=== PATIENT | male | born 1950 | race Caucasian/White ===

== ENCOUNTER → 2018-02-14 08:26 | Outpatient (CLI) | payer OTHER, SELFPAY ==
[2018-02-14 09:46] LABS: Hemoglobin A1c 9.5 % (4.2-6.3)
[2018-02-14 09:54] LABS: Cholesterol 135 mg/dL (200); High Density Lipoprotein 43 mg/dL; Triglycerides 103 mg/dL; Very Low Density Lipoprotein 21 mg/dL (5-40)
== END ==
PROVIDERS: Family Provider Family Medicine; PCP Family Medicine; Visit Provider Family Medicine
DX: E11.9 Type 2 diabetes mellitus without complications (principal)
CPT/HCPCS: 36415; 80061; 83036

== ENCOUNTER → 2018-05-09 10:51 | Outpatient (CLI) | payer OTHER, SELFPAY ==
[2018-05-09 12:10] LABS: Hemoglobin A1c 9.1 % (4.2-6.3)
== END ==
PROVIDERS: Family Provider Family Medicine; PCP Family Medicine; Visit Provider Family Medicine
DX: E11.9 Type 2 diabetes mellitus without complications (principal)
CPT/HCPCS: 36415; 83036

== ENCOUNTER → 2018-08-10 09:57 | Outpatient (CLI) | payer OTHER, SELFPAY | PROVIDERS: Family Provider Family Medicine; PCP Family Medicine; Referring Provider Family Medicine; Visit Provider Family Medicine | DX: E11.9 Type 2 diabetes mellitus without complications (principal) | CPT/HCPCS: 36415; 83036 ==

== ENCOUNTER → 2019-02-20 | Outpatient (CLI) | payer OTHER, SELFPAY ==
[2019-02-20 09:07] VITALS: BMI 34.3
[2019-02-20 12:22] LABS: AST(SGOT) 22 U/L (15-37); Alanine Aminotransfer ALT/SGPT 41 U/L (16-61); Albumin, Serum 3.7 g/dL (3.2-5.0); Alkaline Phosphatase 66 U/L (45-117); Anion Gap 6 (5-15); BUN 17 mg/dL (7-18); Calcium,Total 8.9 mg/dL (8.5-10.1); Chloride 104 mmol/L (98-107); Cholesterol 130 mg/dL (200); Creatinine, Serum 0.68 mg/dL (0.70-1.30); EST Glomerular Filtration Rate 124 mL/min (>60); Est Glom Filt Rate - Afr Amer 150 mL/min (>60); Globulin 3.6 g/dL (2.2-4.2); Glucose 191 mg/dL (74-106); High Density Lipoprotein 41 mg/dL; Potassium 4.1 mmol/L (3.5-5.1); Protein, Total 7.3 g/dL (6.4-8.2); Sodium Level 141 mmol/L (136-145); Triglycerides 183 mg/dL; Very Low Density Lipoprotein 37 mg/dL (5-40)
== END | disposition home or self-care (01) ==
LOC: BIMLAB 09:59
PROVIDERS: Family Provider Family Medicine; PCP Family Medicine; Visit Provider Family Medicine
DX: E78.5 Hyperlipidemia, unspecified (principal)
CPT/HCPCS: 36415; 80053; 80061

== ENCOUNTER → 2020-03-25 09:17 | Outpatient (CLI) | payer OTHER, SELFPAY ==
[2020-03-25 08:44] VITALS: BMI 34.3
[2020-03-25 12:35] LABS: ALB/GLOB Ratio 1.1 RATIO (0.9-2.4); AST(SGOT) 23 U/L (15-37); Alanine Aminotransfer ALT/SGPT 49 U/L (16-61); Albumin, Serum 3.7 g/dL (3.2-5.0); Alkaline Phosphatase 60 U/L (45-117); Anion Gap 8 (5-15); BUN 16 mg/dL (7-18); Calcium,Total 9.1 mg/dL (8.5-10.1); Chloride 106 mmol/L (98-107); EST Glomerular Filtration Rate 120 mL/min (>60); Est Glom Filt Rate - Afr Amer 146 mL/min (>60); Globulin 3.5 g/dL (2.2-4.2); Glucose 243 mg/dL (74-106); Potassium 4.1 mmol/L (3.5-5.1); Protein, Total 7.2 g/dL (6.4-8.2); Sodium Level 142 mmol/L (136-145)
[2020-03-25 12:55] LABS: Microalbumin,Random Urine 39.1 mg/L (NO RANGE EST.); Microalbumin:Creatinine Ratio 30.3 mg/g CRE (<30 mg/g CRE)
== END ==
PROVIDERS: PCP Family Medicine; Referring Provider Family Medicine; Visit Provider Family Medicine
DX: E11.9 Type 2 diabetes mellitus without complications (principal)
CPT/HCPCS: 36415; 80053; 82043; 82570

== ENCOUNTER → 2021-02-11 13:38 | Outpatient (CLI) | payer OTHER, SELFPAY ==
[2021-02-11 13:03] VITALS: BMI 35.0
[2021-02-11 14:51] LABS: ALB/GLOB Ratio 1.1 RATIO (0.9-2.4); AST(SGOT) 25 U/L (15-37); Alanine Aminotransfer ALT/SGPT 49 U/L (16-61); Albumin, Serum 3.5 g/dL (3.2-5.0); Alkaline Phosphatase 62 U/L (45-117); Anion Gap 6 (5-15); BUN 17 mg/dL (7-18); BUN/Creat Ratio 19.2 RATIO (10-20); Calcium,Total 8.8 mg/dL (8.5-10.1); Chloride 103 mmol/L (98-107); Cholesterol 132 mg/dL (200); Creatinine, Serum 0.89 mg/dL (0.70-1.30); EST Glomerular Filtration Rate 91 mL/min (>60); Est Glom Filt Rate - Afr Amer 110 mL/min (>60); Globulin 3.1 g/dL (2.2-4.2); Glucose 339 mg/dL (74-106); High Density Lipoprotein 37 mg/dL; Potassium 4.5 mmol/L (3.5-5.1); Protein, Total 6.6 g/dL (6.4-8.2); Sodium Level 138 mmol/L (136-145); Triglycerides 219 mg/dL; Very Low Density Lipoprotein 44 mg/dL (5-40)
[2021-02-11 15:44] LABS: Microalbumin,Random Urine 11.1 mg/L (NO RANGE EST.)
== END ==
PROVIDERS: PCP Family Medicine; Referring Provider Family Medicine; Visit Provider Family Medicine
DX: E78.5 Hyperlipidemia, unspecified (principal); E11.9 Type 2 diabetes mellitus without complications
CPT/HCPCS: 36415; 80053; 80061; 82043; 82570

== ENCOUNTER → 2021-10-07 09:31 | Outpatient (CLI) | payer OTHER, SELFPAY ==
[2021-10-07 12:25] LABS: Anion Gap 8 (5-15); BUN 18 mg/dL (7-18); BUN/Creat Ratio 28.3 RATIO (10-20); Calcium,Total 8.7 mg/dL (8.5-10.1); Chloride 104 mmol/L (98-107); Creatinine, Serum 0.64 mg/dL (0.70-1.30); EST Glomerular Filtration Rate 133 mL/min (>60); Est Glom Filt Rate - Afr Amer 161 mL/min (>60); Glucose 301 mg/dL (74-106); Potassium 3.9 mmol/L (3.5-5.1); Sodium Level 137 mmol/L (136-145)
[2021-10-07 12:39] LABS: Hemoglobin A1c 11.5 % (3.8-5.6)
== END ==
PROVIDERS: PCP Family Medicine; Visit Provider Family Medicine
DX: E11.9 Type 2 diabetes mellitus without complications (principal); Z79.4 Long term (current) use of insulin
CPT/HCPCS: 36415; 80048; 83036

== ENCOUNTER 2022-01-23 08:20 | Emergency (ER) | payer OTHER, SELFPAY ==
[2022-01-23 08:21] VITALS: BP 176/89; PULSE 86; RESP 16; TEMP 36; O2SAT 95; BMI 31.7
--- NOTE | 2022-01-23 08:36 | EDS_ITS ---
HPI HPI - GI History of Present Illness Chief Complaint: Abd Pain Detail of Chief Complaint: Abdominal pain that started around 1 AM Informant: patient Abdominal Pain/Flank Pain Current Severity: 3/10 Maximum Severity: Severe Narrative Narrative: Patient presents to the emergency department complaint of abdominal pain us around 1 AM. Patient states the pain woke him up. He denies nausea or vomiting or diarrhea. Denies fever. Currently rates the pain a 3 or 4 out of 10. Patient states the pain had been more severe. No history of kidney stones. He denies urinary symptoms and denies hematuria. PFSH [facility] Medical History (Updated 01/23/22 @ 09:[address] Jeannie Martinez, ) Hyperlipidemia Hypertension Type 2 diabetes mellitus Home Medications aspirin 81 mg tablet,delayed release 81 mg PO QDAY 02/08/18 [History Last Taken Unknown] ezetimibe 10 mg tablet 10 mg PO QDAY #90 tab 03/24/21 [Rx Last Taken Unknown] insulin lispro 100 unit/mL subcutaneous pen 10 unit SC TID #15 ml 03/24/21 [Rx Last Taken Unknown] lisinopril 10 mg tablet 10 mg PO QDAY #90 tab 10/07/21 [Rx Last Taken Unknown] metformin 500 mg tablet 500 mg PO BID #180 tab 10/07/21 [Rx Last Taken Unknown] rosuvastatin 20 mg tablet 20 mg PO QHS #90 tab 10/07/21 [Rx Last Taken Unknown] dulaglutide 3 mg/0.5 mL subcutaneous pen injector 3 mg SC QWEEK #2 ml 10/08/21 [Rx Last Taken Unknown] insulin glargine 100 unit/mL (3 mL) subcutaneous pen 60 unit SC QPM #15 ml 10/30/21 [Rx Last Taken Unknown] famotidine 10 mg tablet 10 mg PO DAILY 12/31/21 [History Last Taken Unknown] Allergy/AdvReac Type Severity Reaction Status Date / Time No Known Allergies Allergy Verified 01/23/22 08:20 Family History Mother Diabetes Father Myocardial infarction Surgical History History of testicular cancer Social History Smoking Status: Never smoker alcohol intake: never substance use type: does not use what type of physical activity do you participate in: none ROS ROS ED Constitutional Constitutional ED: Reports systems reviewed and no addt'l complaints, except as documented; Denies body ache(s), change in weight or chills Eyes Eyes: Denies acute decrease in peripheral vision, change in vision, double vision or loss of vision ENT ENT ED: Reports none; Denies ear pain, lip swelling, loss taste/smell, neck pain, otalgia or sore throat Cardiovascular Cardiovascular: Reports none; Denies abdominal pain, chest pain with activity, leg edema, lightheadedness, palpitations, rapid heart rate or syncope Respiratory/Chest Respiratory/Chest: Reports none; Denies change in mental status, dry cough, dyspnea, hemoptysis, shortness of breath at rest or shortness of breath with exertion Gastrointestinal Gastrointestinal: Reports none and abdominal pain; Denies change in stool character, diarrhea, hematemesis, hematochezia, melena, rectal bleeding or vomiting Genitourinary Genitourinary ED: Reports none; Denies abdominal discomfort, anuria, dysuria, genital pain or polyuria Musculoskeletal Musculoskeletal: Reports none; Denies arthralgias, back pain, difficulty walking, extremity pain, muscle weakness or myalgias Integumentary Reports none; Denies abscess or rash Neurologic Neurologic: Reports none; Denies abnormal gait, confusion, focal weakness, frequent falls, headache(s), loss of vision, numbness, paresthesias, radicular pain, vertigo or weakness Psychiatric Psychiatric: Reports systems reviewed and no addt'l complaints, except as documented and none; Denies behavioral changes, confusion, difficulty concentrating, hallucinations, suicidal ideation, tactile hallucinations or visual hallucinations Endocrine Endocrinology: Denies none, cold intolerance, excessive sweating, fatigue or heat intolerance Hematologic/Lymphatic Hematologic/Lymphatic: Reports none; Denies anemia, easy bleeding or easy bruising Allergic/Immunologic Allergic/Immunologic ED: Denies as per HPI, none, lip swelling, mouth swelling, throat swelling, tongue swelling or hives EXAM Physical Exam Const Vital Signs: 01/23/22 08:21 Temperature 96.8 F L Temperature Source Temporal Pulse Rate 86 Respiratory Rate 16 Blood Pressure 176/89 H Blood Pressure Mean 118 Pulse Ox 95 Oxygen Delivery Method Room Air Positive well nourished and well developed General Appearance ED: well developed and NAD HEENT Reports TM's clear and moist mucous membranes normocephalic and atraumatic; Negative for trauma or tenderness Tympanic Membrane ED: Yes TM's clear Eyes PERRL and EOMs intact bilaterally General Eye ED: Negative for pale conjunctiva or scleral icterus Neck no lymphadenopathy, supple and no JVD General: Negative for tenderness Chest Wall inspection of chest normal and palpation of chest normal Chest: Negative for tenderness Resp normal respiratory effort and clear to auscultation bilaterally Effort and Inspection: Negative for respiratory distress or pain with movement Auscultation: Negative for rhonchi, wheezes or diminished lung sounds Cardio regular rate, regular rhythm, S1 normal heart sound, S2 normal heart sound and no murmurs Peripheral Pulses: pulses 2+ throughout GI normal to inspection, nondistended, normoactive bowel sounds, soft to palpation, non-distended and no masses GI Narrative: Patient with tenderness over the right lower quadrant and p eriumbilical region. There are some mild guarding. There is no rebound, rigidity, or peritoneal signs. No CVA tenderness on exam. Back/Spine no CVA tenderness and no thoracic nor lumbar tenderness Extremity normal to inspection General Extremety ED: Negative for edema General Extremity: Negative for edema Neuro oriented x3, CN's II-XII intact bilaterally, no sensory deficits noted and gait normal Sensorium / Orientation: awake, alert, oriented to person, oriented to place and oriented to time Motor Exam: strength 5/5 throughout and strength abnormal Psych mental status grossly normal Skin no rashes or lesions noted and no wounds MDM MDM MDM Narrative Medical decision making narrative: IV line established on arrival. Patient's pain was minimal did not anything for pain. Lab work-up was normal. Urinalysis was normal. Lactate was normal. CT scan of the M pelvis without contrast showed some nonspecific fluid-filled mildly distended bowel neck not rule out ileus versus early small bowel obstruction. Patient's not had any prior surgeries and clinically I do not feel he has a bowel obstruction. On repeat examination at 950 he is essentially without pain and questions why he even came in. Patient advised to return if worsening pain, fever, vomiting, or condition should worsen anyway. Patient to follow-up with his primary care physician 3 to 5 days. Lab Data Attestation: I reviewed the patient's lab results. Labs: Laboratory Results - last 24 hr 01/23/22 01/23/22 01/23/22 08:50 08:50 08:50 WBC 4.4 RBC 5.53 Hgb 15.7 Hct 46.0 MCV 83.2 MCH 28.4 MCHC 34.1 RDW Std Deviation 37.2 RDW Coeff of Laury 12.2 Plt Count 156 MPV 9.3 Immature Gran % (Auto) 0.500 Neut % (Auto) 82.2 H Lymph % (Auto) 12.4 L [place] % (Auto) 3.6 Eos % (Auto) 1.1 Baso % (Auto) 0.2 Absolute Neuts (auto) 3.6 Absolute Lymphs (auto) 0.55 L Nucleated RBC % 0 Sodium 135 L Potassium 4.1 Chloride 103 Carbon Dioxide 28.0 Anion Gap 4 L BUN 15 Creatinine 0.83 Estim Creat Clear Calc 81.27 Est GFR (MDRD) Af Amer 118 Est GFR (MDRD) Non-Af 97 BUN/Creatinine Ratio 18.1 Glucose 232 H Lactic Acid 1.5 Calcium 8.9 Total Bilirubin 0.60 AST 30 ALT 48 Alkaline Phosphatase 60 Total Protein 7.2 Albumin 3.6 Globulin 3.6 Albumin/Globulin Ratio 1.0 Urine Color Urine Clarity Urine pH Ur Specific [place] Urine Protein Urine Glucose (UA) Urine Ketones Urine Occult Blood Urine Nitrite Urine Bilirubin Urine Urobilinogen Ur Leukocyte Esterase Urine RBC Urine WBC Ur Squamous Epith Cells Urine Bacteria Urine Mucus 01/23/22 09:05 WBC RBC Hgb Hct MCV MCH MCHC RDW Std Deviation RDW Coeff of Laury Plt Count MPV Immature Gran % (Auto) Neut % (Auto) Lymph % (Auto) [place] % (Auto) Eos % (Auto) Baso % (Auto) Absolute Neuts (auto) Absolute Lymphs (auto) Nucleated RBC % Sodium Potassium Chloride Carbon Dioxide Anion Gap BUN Creatinine Estim Creat Clear Calc Est GFR (MDRD) Af Amer Est GFR (MDRD) Non-Af BUN/Creatinine Ratio Glucose Lactic Acid Calcium Total Bilirubin AST ALT Alkaline Phosphatase Total Protein Albumin Globulin Albumin/Globulin Ratio Urine Color Yellow Urine Clarity Sl. Cloudy Urine pH 5.0 Ur Specific [place] 1.025 Urine Protein 15 H Urine Glucose (UA) 100 H Urine Ketones 5 H Urine Occult Blood 10 H Urine Nitrite Negative Urine Bilirubin Negative Urine Urobilinogen Normal Ur Leukocyte Esterase Negative Urine RBC 0 SEEN Urine WBC 0 SEEN Ur Squamous Epith Cells 0 SEEN Urine Bacteria 0 SEEN Urine Mucus 0 SEEN Radiography Diagnostic Testing: Clinical Impression(s) from Imaging Studies Abdomen/Pelvis CT 01/23/22 09:05 IMPRESSION: 1. Nonspecific fluid-filled mildly distended proximal small bowel loops with normal in caliber distal small bowel loops could be due to ileus. Early small bowel obstruction cannot be excluded. 2. Otherwise no focal acute inflammatory process. 3. Small umbilical hernia with bulging small bowel loops without evidence of obstruction at this site. 4. Small right inguinal hernia containing fat. 5. Fatty infiltration of the liver. 6. Left renal cyst. Electronically Signed: Bakari Beverly MD at 9:23 EDT , Discharge Plan Triage Chief Complaint: Abd Pain ED Provider: Jeannie Martinez Dx/Rx/DC Orders Clinical Impression: Abdominal pain Instructions: ED Abdominal Pain Unkn Cause Male... Prescriptions: No Action aspirin [Adult Low Dose Aspirin] 81 mg tablet,delayed release (DR/EC) 81 mg PO QDAY RF: 0 lisinopril 10 mg tablet 10 mg PO QDAY Qty: 90 RF: 4 rosuvastatin 20 mg tablet 20 mg PO QHS Qty: 90 RF: 3 metformin 500 mg tablet 500 mg PO BID Qty: 180 RF: 3 famotidine 10 mg tablet 10 mg PO DAILY RF: 0 ezetimibe 10 mg tablet 10 mg PO QDAY Qty: 90 RF: 3 insulin lispro [Humalog KwikPen Insulin] 100 unit/mL insulin pen 10 unit SC TID Qty: 15 RF: 3 dulaglutide 3 mg/0.5 mL pen injector 3 mg SC QWEEK Qty: 2 RF: 4 Lantus Solostar U-100 Insulin 100 unit/mL (3 mL) insulin pen 60 unit SC QPM Qty: 15 RF: 3 Primary Care Provider: Pepe Ram Referrals: Pepe Ram, [Primary Care Provider] - 3-5 Days Disposition Disposition: Home, Self Care
[2022-01-23 09:04] LABS: Absolute Lymphocyte Count 0.55 X10^3/uL (0.83-4.51); Absolute Neutrophil Count 3.6 X10^3/uL (2.0-7.7); Basophil# 0.01 X10^3/uL; Basophil% 0.2 % (0-1); Eosinophil# 0.05 X10^3/uL; Eosinophils% 1.1 % (0-5); Hemoglobin 15.7 g/dL (13.0-16.5); Lymphocyte # 0.55 X10^3/ul (0.83-4.51); Lymphocyte % 12.4 % (19-41); Mean Corp Hgb Conc 34.1 g/dL (32-36); Mean Corpuscular Hgb 28.4 pg (27.0-32.0); Mean Corpuscular Volume 83.2 fL (80-94); Mean Platelet Vol. 9.3 fl (6.2-12.0); Monocyte# 0.16 X10^3/uL; Monocyte% 3.6 % (0-10); NRBC Flagged by Analyzer 0 % (0-5); Neutrophil # 3.64 X10^3/uL (2.7-7.7); Neutrophil % 82.2 % (47-70); POSITIVE DIFFERENTIAL YES; Platelet Count 156 K/mm3 (150-450); RBC Distribution Width CV 12.2 % (11.6-14.6); RBC Distribution Width SD 37.2 fl (35.1-43.9); Red Blood Count 5.53 M/mm3 (4.6-6.2); White Blood Count 4.4 K/mm3 (4.4-11.0)
--- NOTE | 2022-01-23 09:05 | CT_ITS ---
STUDY: CT ABDOMEN AND PELVIS WITHOUT CONTRAST REASON FOR EXAM: Male, 71 years old. Pain RADIATION DOSAGE (If Supplied By Facility): CTDIvol = ( 16.86 ) mGy, DLP = ( 884.58 ) mGycm TECHNIQUE: Transaxial images were obtained from the dome of the diaphragm to the symphysis pubis without oral contrast, and without intravenous contrast. Sagittal and coronal images were reconstructed. Individualized dose optimization techniques were used for this CT. COMPARISON: None. FINDINGS: The visualized lung bases are unremarkable. The visualized portions of the heart are within normal limits. Diffuse fatty infiltration of the liver. Normal gallbladder and extrahepatic biliary system. Normal spleen. Normal pancreas. Normal bilateral adrenal glands. Normal right kidney. Large cyst in the lower pole of the left kidney extending to the left renal pelvis measuring by 7.5 cm appears to be simple. The stomach is not well-distended. Nonspecific mildly distended proximal small bowel loops with normal caliber distal small bowel loops could be due to ileus. Early small bowel obstruction cannot be excluded. Fecal retention. No evidence of acute diverticulitis. The appendix is visualized and appears normal. There is diffuse atherosclerotic calcification of the abdominal aorta with elongation and tortuosity, but without a demonstrated aneurysm. Normal inferior vena cava. Normal retroperitoneum. The urinary bladder is not well-distended. Small umbilical hernia with bulging of small bowel loops through the hernia without evidence of bowel obstruction at this site. Small right inguinal hernia containing fat. Moderate compression fracture of L1 vertebra probably chronic. Small sclerotic lesion at L1 probably due to bone alignment. Mild degenerative changes. CT/Abdomen/Pelvis without Cont IMPRESSION: 1. Nonspecific fluid-filled mildly distended proximal small bowel loops with normal in caliber distal small bowel loops could be due to ileus. Early small bowel obstruction cannot be excluded. 2. Otherwise no focal acute inflammatory process. 3. Small umbilical hernia with bulging small bowel loops without evidence of obstruction at this site. 4. Small right inguinal hernia containing fat. 5. Fatty infiltration of the liver. 6. Left renal cyst. Electronically Signed: Bakari Beverly MD at 9:23 EDT ,
[2022-01-23 09:08] LABS: Differential Indicated SCAN CRITERIA MET
[2022-01-23 09:10] LABS: Bacteria 0 SEEN /hpf (None Seen); Mucous, Urine 0 SEEN /hpf (<or=2+); Red Blood Cells-Urine 0 SEEN /hpf (0-5); Squamous Epithelial Cells - UA 0 SEEN /hpf (0-5); White Blood Cells 0 SEEN /hpf (0-5)
[2022-01-23 09:13] LABS: Color, Urine Yellow (Yellow); Glucose, Dipstick 100 mg/dl (Normal); Ketone-Dipstick 5 mg/dl (Negative); Leukocyte Esterase-Dipstick Negative /ul (Negative); Nitrite-Dipstick Negative (Negative); Occult Blood-Urine 10 /ul (Negative); Protein-Dipstick 15 mg/dl (Negative); Specific Gravity, Urine 1.025 (1.002-1.030); Urine Bilirubin Dipstick Negative (Negative); Urine Clarity Sl. Cloudy (Clear); Urine Urobilinogen Normal (Normal)
[2022-01-23 09:22] LABS: AST(SGOT) 30 U/L (15-37); Alanine Aminotransfer ALT/SGPT 48 U/L (16-61); Albumin, Serum 3.6 g/dL (3.2-5.0); Alkaline Phosphatase 60 U/L (45-117); Anion Gap 4 (5-15); BUN 15 mg/dL (7-18); BUN/Creat Ratio 18.1 RATIO (10-20); Calcium,Total 8.9 mg/dL (8.5-10.1); Chloride 103 mmol/L (98-107); Creatinine, Serum 0.83 mg/dL (0.70-1.30); EST Glomerular Filtration Rate 97 mL/min (>60); Est Glom Filt Rate - Afr Amer 118 mL/min (>60); Estimated Creatinine Clearance 81.27 ml/min; Globulin 3.6 g/dL (2.2-4.2); Glucose 232 mg/dL (74-106); Potassium 4.1 mmol/L (3.5-5.1); Protein, Total 7.2 g/dL (6.4-8.2); Sodium Level 135 mmol/L (136-145)
[2022-01-23] MEDS: 0.9% Normal Saline 1,000 ML 125 ML IV (09:23)
[2022-01-23 09:38] LABS: Lactic Acid 1.5 mmol/L (0.4-1.9)
== END 2022-01-23 10:11 | disposition home or self-care (01) ==
PROVIDERS: Emergency Provider Emergency Medicine; PCP Family Medicine; Visit Provider Emergency Medicine
DX: R10.9 Unspecified abdominal pain (principal); E11.9 Type 2 diabetes mellitus without complications; Z79.4 Long term (current) use of insulin; E78.5 Hyperlipidemia, unspecified; I10 Essential (primary) hypertension; Z79.82 Long term (current) use of aspirin; Z79.899 Other long term (current) drug therapy
CPT/HCPCS: 74176; 80053; 81001; 83605; 85025; 96360; 99283; J7030; A4216

== ENCOUNTER → 2022-08-02 | Outpatient (CLI) | payer OTHER, SELFPAY ==
--- NOTE | 2022-08-02 08:45 | EKG12_ITS ---
Test Reason : HTN,PALPS Blood Pressure : / mmHG Vent. Rate : 072 BPM Atrial Rate : 072 BPM P-R Int : 168 ms QRS Dur : 074 ms QT Int : 390 ms P-R-T Axes : 027 012 025 degrees QTc Int : 427 ms Sinus rhythm with frequent Premature ventricular complexes and Fusion complexes Nonspecific T wave abnormality Abnormal ECG Confirmed by TAHIR DANG, SUYAPA ([id number]), newspaper photo editor GABBI MAGUIRE ([id number]) on 08/03/2022 9:19:34 AM Referred By: Pepe Ram Confirmed By:SUYAPA HARO MD
== END | disposition home or self-care (01) ==
LOC: PSN 08:44
PROVIDERS: PCP Family Medicine; Referring Provider Family Medicine; Visit Provider Family Medicine
DX: I10 Essential (primary) hypertension (principal)
CPT/HCPCS: 93005

== ENCOUNTER → 2023-02-16 | Outpatient (CLI) | payer OTHER, SELFPAY ==
[2023-02-16 13:11] LABS: Microalbumin,Random Urine 54.1 mg/L (NO RANGE EST.); Microalbumin:Creatinine Ratio 25.2 mg/g CRE (<30 mg/g CRE)
[2023-02-16 13:21] LABS: ALB/GLOB Ratio 0.9 RATIO (0.9-2.4); AST(SGOT) 43 U/L (15-37); Alanine Aminotransfer ALT/SGPT 56 U/L (16-61); Albumin, Serum 3.4 g/dL (3.2-5.0); Alkaline Phosphatase 61 U/L (45-117); Anion Gap 6 (5-15); BUN 18 mg/dL (7-18); BUN/Creat Ratio 26.7 RATIO (10-20); Calcium,Total 8.9 mg/dL (8.5-10.1); Chloride 104 mmol/L (98-107); Cholesterol 139 mg/dL (200); Creatinine, Serum 0.68 mg/dL (0.70-1.30); EST Glomerular Filtration Rate 124 mL/min (>60); Est Glom Filt Rate - Afr Amer 149 mL/min (>60); Globulin 3.7 g/dL (2.2-4.2); Glucose 193 mg/dL (74-106); High Density Lipoprotein 41 mg/dL; Protein, Total 7.1 g/dL (6.4-8.2); Sodium Level 135 mmol/L (136-145); Triglycerides 193 mg/dL; Very Low Density Lipoprotein 39 mg/dL (5-40)
== END | disposition home or self-care (01) ==
LOC: BIMLAB 09:19
PROVIDERS: PCP Family Medicine; Visit Provider Family Medicine
DX: E11.9 Type 2 diabetes mellitus without complications (principal); Z79.4 Long term (current) use of insulin; I10 Essential (primary) hypertension
CPT/HCPCS: 36415; 80053; 80061; 82043; 82570

== ENCOUNTER 2023-06-23 18:12 | Emergency (ER) | payer OTHER, SELFPAY ==
[2023-06-23 18:13] VITALS: BP 132/72; PULSE 79; RESP 18; TEMP 36.2; O2SAT 99; BMI 33.6
--- NOTE | 2023-06-23 18:20 | RAD_ITS ---
INDICATION: Trauma, fall EXAMINATION/TECHNIQUE: X-RAY - RIGHT XR Elbow 2 Views 3 VIEWS COMPARISON: None. FINDINGS: SOFT TISSUES: Soft tissue swelling over the olecranon. Displacement of the anterior fat pad. No radiopaque foreign body. BONES/JOINTS: Comminuted and mildly displaced fracture of the olecranon and proximal ulna. Joint spaces anatomically aligned. No sclerotic or destructive changes observed. RAD/Elbow min 3 Views IMPRESSION: Comminuted fracture of the olecranon and proximal ulna. Electronically Signed: Jatinder Chapin MD at 18:49 EDT ,
--- NOTE | 2023-06-23 19:48 | EX.ED.UPPERE ---
HPI <MARSHAL Witt - Last Filed: 06/23/23 20:36> History of Present Illness Chief Complaint: Upper Extremity Injury Narrative Narrative: Patient is a 72-year-old male with history of obesity, type 2 diabetes, hypertension hyperlipidemia who presents to the emergency department after mechanical fall injuring his right elbow. 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 This happened approximately 230. Patient states he put himself in a sling, continued working. However secondary to the ongoing edema, he had more pain is here for evaluation. Denies any other injury. [facility] <MARSHAL Witt - Last Filed: 06/23/23 20:36> [facility] Medical History Hyperlipidemia Hypertension Impacted cerumen of both ears Type 2 diabetes mellitus Home Medications aspirin 81 mg tablet,delayed release (Adult Low Dose Aspirin) 81 mg PO QDAY 02/08/18 [History Last Taken Unknown] latanoprost 0.005 % eye drops ml ophthalmic (eye) 04/14/22 [History Last Taken Unknown] dulaglutide 3 mg/0.5 mL subcutaneous pen injector 3 mg (0.5 mL) subcut QWEEK #2 mL 06/21/23 [Rx Last Taken Unknown] ezetimibe 10 mg tablet 10 mg PO QDAY #90 tabs 06/21/23 [Rx Last Taken Unknown] flash glucose scanning reader (FreeStyle Garth 14 Day [place]) #1 ea 06/21/23 [Rx Last Taken Unknown] flash glucose sensor (FreeStyle Garth 14 Day Sensor kit) #1 ea 06/21/23 [Rx Last Taken Unknown] insulin glargine 100 unit/mL (3 mL) subcutaneous pen (Lantus Solostar U-100 Insulin) 60 unit (0.6 mL) subcut QPM #15 mL 06/21/23 [Rx Last Taken Unknown] insulin lispro 100 unit/mL subcutaneous pen (Humalog KwikPen (U-100) Insulin) 10 unit (0.1 mL) subcut TID #15 mL 06/21/23 [Rx Last Taken Unknown] lisinopril 10 mg tablet 10 mg PO QDAY #90 tabs 06/21/23 [Rx Last Taken Unknown] metformin 500 mg tablet 500 mg PO BID #180 tabs 06/21/23 [Rx Last Taken Unknown] rosuvastatin 20 mg tablet 20 mg PO QHS #90 tabs 06/21/23 [Rx Last Taken Unknown] oxycodone-acetaminophen 5 mg-325 mg tablet (Percocet) 1 tab PO Q8H PRN pain 3 days #10 tabs 06/23/23 [Rx Last Taken Unknown] Allergy/AdvReac Type Severity Reaction Status Date / Time No Known Allergies Allergy Verified 06/23/23 18:13 Family History Mother Diabetes Father Myocardial infarction Surgical History History of testicular cancer Social History Smoking Status: Never smoker alcohol intake: never substance use type: does not use what type of physical activity do you participate in: none ROS <MARSHAL Witt - Last Filed: 06/23/23 20:36> ROS ED ROS Narrative Constitutional: Negative for fever, chills, weight loss, weakness Eyes: Negative for vision loss, vision change, double vision ENT: Negative for any sore throat, ear pain, congestion Cardiovascular: Negative for any chest pain, tightness, palpitations Respiratory: Negative for any cough, sputum production, hemoptysis, dyspnea, dyspnea on exertion, orthopnea Gastrointestinal: Negative for any abdominal pain, nausea, vomiting, diarrhea, constipation, blood in stool, blood in vomit : Negative for any urinary frequency, dysuria, retention, blood in urine Muscle skeletal: Negative for any muscle joint pain, stiffness, myalgias, arthralgias, neck pain, back pain. Positive for right elbow injury Neurological: Negative for any headache, syncope, numbness or tingling, dizziness Skin: Negative for any rashes, lumps, itching, abrasions, lacerations Psychiatric: Negative for any depression, anxiety, stress, suicidal ideation, homicidal ideation Hematologic: Negative for any easy bruising, excessive bruising, easy bleeding Allergies: Negative for any eczema, hives, rash EXAM <MARSHAL Witt - Last Filed: 06/23/23 20:36> Physical Exam Narrative Exam Narrative: Vital signs reviewed. Extremities: Patient has edema, ecchymosis to the right elbow. Patient is able to flex and extend but any supination or pronation causes significant discomfort. Patient is no numbness or tingling to the fingers. Patient is +2 pedal pulse. Neuro: Cranial nerves II through XII intact, no focal neurological deficits. Skin: Clean dry and intact with no rash, purpura, petechiae, vesicles or pustules. Backs/flank: No CVA tenderness, no midline spinal tenderness, no deformity. Psych: Normal mood and affect. No SI, HI or acute psychosis. Const Vital Signs: 06/23/23 18:13 Temperature 97.2 F L Temperature Source Temporal Pulse Rate 79 Respiratory Rate 18 Blood Pressure 132/72 H Blood Pressure Mean 92 Pulse Ox 99 MDM <Frankie GuillerminaMARSHAL vega - Last Filed: 06/23/23 20:36> MDM Radiography Diagnostic Testing: Clinical Impression(s) from Imaging Studies Elbow X-Ray 06/23/23 18:20 IMPRESSION: Comminuted fracture of the olecranon and proximal ulna. Electronically Signed: Jatinder Chapin MD at 18:49 EDT , Treatment and Re-Evaluation Narrative: Patient appears generally well, patient appears nontoxic, vital signs are stable. Patient presents to the emergency department with right elbow pain secondary to a fall. Patient did receive x-rays of the right elbow concerning for fracture. All radiologic examinations were read, reviewed by the emergency department attending. From these reads, a plan of care will be put in place. Patient's x-ray showed a comminuted fracture olecranon and proximal ulna. I did speak with orthopedics. Patient will be placed in a posterior long arm OCL. He will follow-up outpatient he will call tomorrow. He will be given Percocet for home. He is instructed to ice, he will be given a sling. Post splint, patient had no neurological focal deficit. Patient stable for discharge. <Dr. Livan Nunes, DO - Last Filed: 06/23/23 22:58> [facility] Treatment and Re-Evaluation Narrative: ED attending note: I evaluated the patient in conjunction with the [facility]. I agree with his/her statements and above findings. I have personally performed a face to face assessment of the patient and have reviewed the [facility] Note. I performed a substantive portion of the visit including all aspects of the following. I personally saw the patient performed chart review, physical exam, reviewed labs, imaging (if obtained), and formulated a treatment and management plan. Brief history: 72-year-old male here with right elbow injury Exam: Nursing triage notes reviewed, Vital signs reviewed Constitutional: please see mdm Extremities: No edema, compartments are soft Neuro: Intact 5/5 strength with ok sign (median), intact finger abduction (ulnar) intact wrist extension (radial n). Intact sensation in the radial, ulnar, and median nerve distributions. Skin: No rash or lesions noted, no evidence of open fracture MDM/plan: Chief Complaint: Right elbow injury External records reviewed: No recent adVanced imaging of the involved extremity Factors affecting care: Hypertension, hyperlipidemia, type 2 diabetes MDM narrative: Patient was hemodynamically stable, afebrile, nontoxic-appearing. Right upper extremity is neurovascularly intact. I considered the following differential diagnosis: Elbow fracture, dislocation, elbow contusion X-ray was obtained to rule out fracture/dislocation. X-ray was personally read reviewed myself shows evidence of olecranon fracture. Will place in a long-arm splint and discharged with close orthopedic follow-up. Shared decision making: I will have a discussion with the patient and or visitors regarding risk/benefits of further testing or admission. They will be made aware of of the risk/benefits inherent in this decision they will be given the opportunity to voice understanding. Consults: Orthopedic surgery Discharge Plan Triage Chief Complaint: Upper Extremity Injury ED Midlevel Provider: Frankie Valenzuela ED Provider: Livan Nunes Dx/Rx/DC Orders Clinical Impression: Elbow fracture, Fall Instructions: ED Elbow Fracture Prescriptions: New oxycodone-acetaminophen [Percocet] 5-325 mg tablet 1 tab PO Q8H PRN (Reason: pain) 3 Days Qty: 10 0RF No Action aspirin [Adult Low Dose Aspirin] 81 mg tablet,delayed release (DR/EC) 81 mg PO QDAY latanoprost 0.005 % drops ophthalmic (eye) (DME) FreeStyle Garth 14 Day [place] Misc See Rx Instructions .Route Qty: 1 6RF Rx Instructions: As directed (DME) FreeStyle Garth 14 Day Sensor Kit See Rx Instructions .Route Qty: 1 2RF Rx Instructions: As directed dulaglutide 3 mg/0.5 mL pen injector 3 mg SC QWEEK Qty: 2 4RF ezetimibe 10 mg tablet 10 mg PO QDAY Qty: 90 3RF Lantus Solostar U-100 Insulin 100 unit/mL (3 mL) insulin pen 60 unit SC QPM Qty: 15 3RF insulin lispro [Humalog KwikPen Insulin] 100 unit/mL insulin pen 10 unit SC TID Qty: 15 3RF lisinopril 10 mg tablet 10 mg PO QDAY Qty: 90 4RF metformin 500 mg tablet 500 mg PO BID Qty: 180 3RF rosuvastatin 20 mg tablet 20 mg PO QHS Qty: 90 3RF Primary Care Provider: Pepe Ram Referrals: Pepe Ram DO [Primary Care Provider] - Darwin Harmon MD [Med Staff - Active Staff] - Activity Restrictions/Additional Instructions: This splint cannot get wet. Keep it in a sling when you are up. You may try to ice it. You need to call orthopedics tomorrow for a follow-up appointment. Take pain medicine as needed. Disposition Disposition: Home, Self Care Discharge Date/Time: 06/23/23 20:51
[2023-06-23 20:50] VITALS: PULSE 75; RESP 18
== END 2023-06-23 20:51 | disposition home or self-care (01) ==
PROVIDERS: Emergency Provider Emergency Medicine; PCP Family Medicine; Visit Provider Emergency Medicine
DX: S52.021A Displaced fracture of olecranon process without intraarticular extension of right ulna, initial encounter for closed fracture (principal); E11.9 Type 2 diabetes mellitus without complications; Z79.4 Long term (current) use of insulin; I10 Essential (primary) hypertension; E78.5 Hyperlipidemia, unspecified; Z79.82 Long term (current) use of aspirin; Z79.899 Other long term (current) drug therapy; Z79.85 Long-term (current) use of injectable non-insulin antidiabetic drugs; Y92.79 Other farm location as the place of occurrence of the external cause; W01.198A Fall on same level from slipping, tripping and stumbling with subsequent striking against other object, initial encounter
CPT/HCPCS: 29105; 73080; 99282

== ENCOUNTER → 2023-06-24 | Outpatient (CLI) | payer OTHER, SELFPAY ==
[2023-06-24 15:05] LABS: Hematocrit 39.9 % (40-54); Hemoglobin 12.7 g/dL (13.0-16.5); Mean Corp Hgb Conc 31.8 g/dL (32-36); Mean Corpuscular Hgb 28.2 pg (27.0-32.0); Mean Corpuscular Volume 88.5 fL (80-94); Mean Platelet Vol. 9.8 fl (6.2-12.0); Platelet Count 189 K/mm3 (150-450); RBC Distribution Width CV 12.2 % (11.6-14.6); RBC Distribution Width SD 39.6 fl (35.1-43.9); Red Blood Count 4.51 M/mm3 (4.6-6.2); White Blood Count 5.6 K/mm3 (4.4-11.0)
[2023-06-24 15:25] LABS: Anion Gap 7 (5-15); BUN 25 mg/dL (7-18); Calcium,Total 8.5 mg/dL (8.5-10.1); Chloride 107 mmol/L (98-107); EST Glomerular Filtration Rate 78 mL/min (>60); Est Glom Filt Rate - Afr Amer 95 mL/min (>60); Glucose 253 mg/dL (74-106); Potassium 4.3 mmol/L (3.5-5.1); Sodium Level 138 mmol/L (136-145)
== END | disposition home or self-care (01) ==
LOC: MTLAB 14:07
PROVIDERS: PCP Family Medicine; Referring Provider Orthopaedic Surgery Sports Medicine; Visit Provider Orthopaedic Surgery Sports Medicine
DX: Z01.818 Encounter for other preprocedural examination (principal)
CPT/HCPCS: 36415; 80048; 85027

== ENCOUNTER 2023-06-29 08:20 | Day surgery (SDC) | payer OTHER, SELFPAY ==
--- NOTE | 2023-06-28 08:59 | EKG12_ITS ---
Test Reason : PREOP Blood Pressure : / mmHG Vent. Rate : 080 BPM Atrial Rate : 080 BPM P-R Int : 156 ms QRS Dur : 078 ms QT Int : 398 ms P-R-T Axes : 027 -08 042 degrees QTc Int : 459 ms Sinus rhythm with frequent Premature ventricular complexes Otherwise normal ECG Confirmed by TAHIR DANG, SUYAPA ([id number]), newspaper editor managing BILLIE BANKS ([id number]) on 07/01/2023 11:44:24 AM Referred By: Darwin Harmon Confirmed By:SUYAPA HARO MD
[2023-06-29] VITALS (12 sets, daily range): BP systolic 115–162; BP diastolic 60–91; PULSE 80–92; RESP 16–18; TEMP 36–38.2; O2SAT 90–99; BMI 33.9
[2023-06-29] MEDS: Lactated Ringers 1,000 ML 15 ML IV (08:56)
--- NOTE | 2023-06-29 09:05 | RAD_ITS ---
INDICATION: FX -- -- ORIF IN OR, RT ELBOW EXAMINATION/TECHNIQUE: X-RAY - RIGHT XR Elbow 2 Views COMPARISON: FINDINGS: 2 views obtained intraoperatively for internal fixation. Alignment appears anatomic. RAD/Elbow 2 Views IMPRESSION: Intraoperative images obtained for hardware localization. Electronically Signed: Tahmina Nguyen MD at 23:56 EDT Reading Location ID and State: [id number] / Tel , Service support ,
--- NOTE | 2023-06-29 09:16 | HP.PCM_ITS ---
HPI - General HPI Narrative VIRI COURTNEY, is a 72 M who presents for right olecranon ORIF. No changes to H and P. Was unable to get into GP. Known poor control of diabetes but unable to delay case due to fracture/ OK to proceed. Right elbow marked. RAB and narcotic counselling discussed. Nothing further. [id number] Acct: [id number] Name: VIRI COURTNEY Rep #: [id number] : 1950 Provider: Dr. Darwin Harmon MD Age/Sex: 72/M Location: [email or web address] Status: Signed Intake Vital Signs 06/23/2318:13 Height 5 ft 7 in Intake Visit Reasons: RIGHT ELBOW Chief Complaint: right elbow ED F/U Accompanied by: and daughters Is patient in pain?: Yes Pain scale (1-10): 5 Allergies No Known Allergies Allergy (Verified 06/23/23 18:13) Medications aspirin 81 mg tablet,delayed release (Adult Low Dose Aspirin) 81 mg PO QDAY 02/08/18 [History Confirmed 06/24/23] latanoprost 0.005 % eye drops ml ophthalmic (eye) 04/14/22 [History Confirmed 06/24/23] dulaglutide 3 mg/0.5 mL subcutaneous pen injector 3 mg (0.5 mL) subcut QWEEK #2 mL 06/21/23 [Rx Confirmed 06/24/23] ezetimibe 10 mg tablet 10 mg PO QDAY #90 tabs 06/21/23 [Rx Confirmed 06/24/23] flash glucose scanning reader (FreeStyle Garth 14 Day [place]) #1 ea 06/21/23 [Rx Confirmed 06/24/23] flash glucose sensor (FreeStyle Garth 14 Day Sensor kit) #1 ea 06/21/23 [Rx Confirmed 06/24/23] insulin glargine 100 unit/mL (3 mL) subcutaneous pen (Lantus Solostar U-100 Insulin) 60 unit (0.6 mL) subcut QPM #15 mL 06/21/23 [Rx Confirmed 06/24/23] insulin lispro 100 unit/mL subcutaneous pen (Humalog KwikPen (U-100) Insulin) 10 unit (0.1 mL) subcut TID #15 mL 06/21/23 [Rx Confirmed 06/24/23] lisinopril 10 mg tablet 10 mg PO QDAY #90 tabs 06/21/23 [Rx Confirmed 06/24/23] metformin 500 mg tablet 500 mg PO BID #180 tabs 06/21/23 [Rx Confirmed 06/24/23] rosuvastatin 20 mg tablet 20 mg PO QHS #90 tabs 06/21/23 [Rx Confirmed 06/24/23] oxycodone-acetaminophen 5 mg-325 mg tablet (Percocet) 1 tab PO Q8H PRN pain 3 days #10 tabs 06/23/23 [Rx Confirmed 06/24/23] PFSH Medical History Fracture of right olecranon process Hyperlipidemia Hypertension Impacted cerumen of both ears Type 2 diabetes mellitus Surgical History History of testicular cancer Family History Mother DiabetesFather Myocardial infarction Social History Smoking Status: Never smoker alcohol intake: never substance use type: does not use what type of physical activity do you participate in: none HPI RIGHT ELBOW Details: Parts of this documentation were recorded by a scribe, this documentation accurately reflects the service provided and the decisions made by me, Dr. Darwin Harmon MD 06/24/23 0830. VIRI COURTNEY is a 72 year old M here today for R olecranon fracture, fell last evening, placed into a splint by the ED. 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 likes baseball. Ortho Exam General General: Yes no acute distress Neurologic: Yes alert and Yes oriented x3 Psychologic: Yes reasonable and appropriate Right Elbow Skin/Wound: Yes CDI, Yes eccymosis, No erythema and Yes Swelling Contralateral Normal: Yes ROM: Yes TTP Fracture Site Sensation: Radial: I, Ulnar: I and Median: I Motor: Elbow Extension: 3, Elbow Flexion: 3, EPL: 4, FDP-2: 4 and 1st Dorsal Interosseous: 4 ELBOW: small superficial abraision at the elbow, closed, no shoulder or wrist pain Supplemental Info [facility] Imaging Services [address] [place] [address] Elbow min 3 Views MR#: [id number] Acct: [id number] Name: VIRI COURTNEY Rep #: [id number] : 1950 M 72 From: Jatinder Chapin MD PCP: Dr. Pepe Ram, DO Status: PRE ER Study: Elbow min 3 Views Date of Exam: 06/23/23 Exam# [id number] Ordering Dr: Provider,Ed P. INDICATION: Trauma, fall EXAMINATION/TECHNIQUE: X-RAY - RIGHT XR Elbow 2 Views 3 VIEWS COMPARISON: None. FINDINGS: SOFT TISSUES: Soft tissue swelling over the olecranon. Displacement of the anterior fat pad. No radiopaque foreign body. BONES/JOINTS: Comminuted and mildly displaced fracture of the olecranon and proximal ulna. Joint spaces anatomically aligned. No sclerotic or destructive changes observed. RAD/Elbow min 3 Views IMPRESSION: Comminuted fracture of the olecranon and proximal ulna. Electronically Signed: Jatinder Chapin MD at 18:49 EDT Reading Location ID and State: [address] [place] [address] Tel , Service support , olecranon fracture, comminuted, intra articular, displaced. Coding Level of Care Code Off vis,new,level 3 Diagnoses Fracture of right olecranon process S52.021A Assessment and Plan Assessment and Plan (1) Fracture of right olecranon process: Status: Acute Plan: 72 M with a right olecranon intra-articular fracture of the proximal ulna. I explained the pros cons risk benefits as well as nature of the injury to the patient nonoperative versus operative treatment of this. With nonoperative treatment more likely develop osteoarthritis nonunion of the fracture elbow instability and weakness of the triceps with elbow extension. That being said surgery has its onset of complications stiffness with or without surgery likely losing 30 degrees of full extension osteoarthritis still a risk of a long-term plate irritation hardware complications delayed or nonunion of the fracture increased risk of complications like infection due to his diabetes his hem oglobin A1c recently was 14 although that cannot delay surgery have asked to try to get a preoperative clearance from his family doctor although ideally we did the surgery next week on Tuesday. The patient understands wishes to go ahead with the plan today I rewrapped the splint and placed him back into the sling and asked him to ice and try to elevate the upper extremity to deal with some swelling there. Pros and cons risks and benefits were discussed with the patient including but not limited to infection, pain, stiffness, bleeding, damage to surrounding structures, neurovascular injury, recurrence or retear, failure or wear of hardware or fixation, instability, fracture, deep vein thrombosis and pulmonary embolism, anesthetic risks, , patient dissatisfaction, need for further surgery and other risks. Patient understood and wished to proceed with surgery, and signed the informed consent documentation. [facility] Medical History (Updated 06/24/23 @ 16:27 by Sherrill Escamilla) Fracture of right olecranon process Hyperlipidemia Hypertension Impacted cerumen of both ears Non-smoker Type 2 diabetes mellitus Wears dentures Wears glasses Home Medications aspirin 81 mg tablet,delayed release (Adult Low Dose Aspirin) 81 mg PO QDAY 02/08/18 [History Last Taken 06/28/23] latanoprost 0.005 % eye drops 1 drp ophthalmic (eye) QHS 04/14/22 [History Last Taken Unknown] ezetimibe 10 mg tablet 10 mg PO QDAY #90 tabs 06/21/23 [Rx Last Taken Unknown] flash glucose scanning reader (FreeStyle Garth 14 Day [place]) #1 ea 06/21/23 [Rx Last Taken Unknown] flash glucose sensor (FreeStyle Garth 14 Day Sensor kit) #1 ea 06/21/23 [Rx Last Taken Unknown] insulin glargine 100 unit/mL (3 mL) subcutaneous pen (Lantus Solostar U-100 Insulin) 60 unit (0.6 mL) subcut QPM #15 mL 06/21/23 [Rx Last Taken 06/29/23] insulin lispro 100 unit/mL subcutaneous pen (Humalog KwikPen (U-100) Insulin) 10 unit (0.1 mL) subcut TID #15 mL 06/21/23 [Rx Last Taken Unknown] lisinopril 10 mg tablet 10 mg PO QDAY #90 tabs 06/21/23 [Rx Last Taken 06/29/23] metformin 500 mg tablet 500 mg PO BID #180 tabs 06/21/23 [Rx Last Taken 06/29/23] rosuvastatin 20 mg tablet 20 mg PO QHS #90 tabs 06/21/23 [Rx Last Taken Unknown] oxycodone-acetaminophen 5 mg-325 mg tablet (Percocet) 1 tab PO Q8H PRN pain 3 days #10 tabs 06/23/23 [Rx Last Taken Unknown] dulaglutide 3 mg/0.5 mL subcutaneous pen injector 3 mg subcut ALEGRE 06/24/23 [History Last Taken Unknown] Allergy/AdvReac Type Severity Reaction Status Date / Time No Known Allergies Allergy Verified 06/24/23 16:11 Family History Mother Diabetes Father Myocardial infarction Surgical History (Updated 06/24/23 @ 16:17 by Sherrill Escamilla) History of testicular cancer History of tooth extraction Social History Smoking Status: Never smoker alcohol intake: never substance use type: does not use what type of physical activity do you participate in: none Vital Signs Vital Signs Vital Signs: 06/29/23 08:57 06/29/23 08:57 Temperature 97.4 F L Temperature Source Temporal Pulse Rate 90 Respiratory Rate 18 Respiratory Pattern Normal Blood Pressure 115/60 Blood Pressure Mean 78 Blood Pressure Source Monitor Blood Pressure Position Semi-Fowlers Blood Pressure Location Right Arm Pulse Ox 99 Oxygen Delivery Method Room Air Weight Weight: 210 lb Body Mass Index (BMI) 33.9
[2023-06-29 09:23] LABS: Bedside Glucose 162 mg/dL (74-106)
[2023-06-29] MEDS: Cefazolin 2 GM in 0.9% Normal Saline 100 ML IV (09:50)
--- NOTE | 2023-06-29 11:38 | OP.PCM_ITS ---
Problems Associated Problem List Diagnoses (1) Fracture of right olecranon process: Report of Operation Date of Procedure: 06/29/23 Pre-Operative Diagnosis: Right olecranon fracture Post-Operative Diagnosis: Same Surgery/Procedure Performed:: Right olecranon open reduction internal fixation Surgeon: Darwin Harmon Type of Anesthesia: Block,Regional and General Anesthesiologist: Reji Madrid Estimated Blood Loss (mL): 50 Description of Procedure: Patient brought to the operating room theater. Placed supine on the table. General anesthesia induced. 2 g IV Ancef administered prior to the start of the procedure. Bed turned 90 degrees. 18 inch tourniquet applied to the upper extremity appropriately padded. Upper extremity prepped and draped in the usual sterile fashion with chlorhexidine-based prep solution allowing over 3 minutes drying time prior to draping. Preoperative timeout performed to confirm the site the patient and the surgery. Crossed arm over body for approach and arm to the side for xrays. Began by elevating the limb exsanguinating with a sterile Esmarch and inflating the tourniquet to 250 mmHg. Made a standard posterior approach to the proximal ulna at subcutaneous border curving this laterally around the olecranon tip. Carried dissection down through skin and subcutaneous tissue achieved meticulous hemostasis. Incised the interval between FCU and ECU proximally achieved subcutaneous dissection down onto the bone. Made a small longitudinal split at the mid aspect of the triceps. Identified the fracture site there is moderate comminution as well as a bending wedge butterfly style fragment there. Joint and fracture hematoma as well as periosteum was thoroughly irrigated and removed. Preliminary reduction was achieved. 1 very small aspect of the articular surface, about 4 mm x 1 mm had to be removed no soft tissue attachment. The bending wedge butterfly fragment I preliminarily pinned this in place. Then I achieved the reduction using drill hole distal to the fracture site with clamp with the elbow in full extension to achieve appropriate compression of the joint surface and alignment. K wires were placed again to preliminary hold the fracture in alignment. Synthes low-profile precontoured locking plate for the proximal olecranon was selected. I used a plate tack to hold this down to the bone. Took radiographs laterally based radiographs show that the plate was a little bit proximally proud, so I moved this as distal as possible and again release some of the triceps and used a rongeur to slightly contour the bone so that I can get this to fit as proximal as possible at the olecranon tip. I placed 3 homerun screws from the proximal end of the plate down distal to achieve bicortical fixation these were locking screws. Next I inserted 2 fully threaded cortical screws 3.5mm at the distalmost screw holes in the plate securing the plate fully down to bone. Then I inserted a number of different fully threaded locking screws 2.4 millimeters screws ensuring that these were short of the joint surface. Did try to place the proximal oblong screw but this was being blocked by the rafter screws, so made it short, 12mm. Final radiographs were taken and saved onto the system. No plate impingement range of motion was full. Plate position and screw position as well as reduction of the joint surface appeared appropriate on both AP and lateral radiographs. Tourniquet let down meticulous hemostasis achieved wound thoroughly irrigated. Split in the triceps closed with #1 Vicryl as well as the fascial split closed with #1 Vicryl as well. Subcutaneous tissue closed with 2- 0 Vicryl suture and skin with 3-0 Monocryl. Skin cleaned with wet and dry dressing followed application of Steri-Strips Adaptic 4 x 4 gauze ABD dressing and sterile cast padding with a posterior prefabricated fiberglass splint with the elbow in 90 degrees allowed to fully harden overwrapped with Reese bandage and a sling for the upper extremity. Case terminated patient woken up from the general anesthetic transferred off the operating table and taken to postanesthetic care unit in stable condition. All sponge needle instrument counts were correct no complications. CPT 09781 Complications none Admit VTE Documentation VTE Present on Admission: No VTE Mechan Device Prophylaxis: SCD's VTE Pharm Prophylaxis ordered?: No Reason prophylaxis not ordered:: Treatment Not Indicated Procedures Musculoskeletal 20xxx-29xxx: Other Procedure See Report
--- NOTE | 2023-06-29 11:49 | EX.PCM.DISCH ---
Discharge Instructions Diet Discharge Diet: No restrictions Activity Ice area for (Minutes): 10 Weight Bearing Status: No weight bearing Keep extremity elevated above heart level: Operative Extremity Dressing / Incision Call your doctor if your incision/area has: Continuous Slow Oozing, Sudden Increased Bleeding, Increased Pain/ Swelling, Increased Redness, Foul Smelling Discharge and Swelling at the incision site Change Dressing in: leave in place till F/U Follow Up Care Please Follow Up With: Darwin Harmon MD When: 2 days Test Results: Test results from this visit will be discussed in further detail at your follow-up appointment, if applicable. Discharge Plan Admission Attending Provider: Darwin Harmon Primary Care Provider: Pepe Ram Discharge Orders/Prescriptions Prescriptions: New oxycodone-acetaminophen [Endocet] 5-325 mg tablet 1 tab PO Q4H MDD 6 PRN (Reason: pain) 5 Days Qty: 20 0RF No Action aspirin [Adult Low Dose Aspirin] 81 mg tablet,delayed release (DR/EC) 81 mg PO QDAY latanoprost 0.005 % drops 1 drp ophthalmic (eye) QHS (DME) FreeStyle Garth 14 Day [place] Misc See Rx Instructions .Route Qty: 1 6RF Rx Instructions: As directed (DME) FreeStyle Garth 14 Day Sensor Kit See Rx Instructions .Route Qty: 1 2RF Rx Instructions: As directed ezetimibe 10 mg tablet 10 mg PO QDAY Qty: 90 3RF Lantus Solostar U-100 Insulin 100 unit/mL (3 mL) insulin pen 60 unit SC QPM Qty: 15 3RF Patient Comments: 30 units 9/6 am insulin lispro [Humalog KwikPen Insulin] 100 unit/mL insulin pen 10 unit SC TID Qty: 15 3RF lisinopril 10 mg tablet 10 mg PO QDAY Qty: 90 4RF metformin 500 mg tablet 500 mg PO BID Qty: 180 3RF rosuvastatin 20 mg tablet 20 mg PO QHS Qty: 90 3RF oxycodone-acetaminophen [Percocet] 5-325 mg tablet 1 tab PO Q8H PRN (Reason: pain) 3 Days Qty: 10 0RF dulaglutide 3 mg/0.5 mL pen injector 3 mg SC ALEGRE Referrals / Follow Up: Pepe Ram, [Primary Care Provider] - Darwin Harmon MD [Med Staff - Active Staff] - Disposition Disposition (needs filled in before D/C Order can be placed): Home, Self Care
--- NOTE | 2023-06-29 12:39 | SUR.PHASEI ---
POST OP EKG PERFORMED; DR. RAYGOZA INFORMED PATIENT TO FOLLOW UP WITH CARDIOLOGY. SINUS RHYTM WITH FREQUENT PVCS, BIGEMINY.
[2023-06-29 13:50] LABS: Bedside Glucose 241 mg/dL (74-106)
== END 2023-06-29 14:54 | disposition home or self-care (01) ==
LOC: SDC 08:22 → AC 08:24
PROVIDERS: PCP Family Medicine; Referring Provider Orthopaedic Surgery Sports Medicine; Visit Provider Orthopaedic Surgery Sports Medicine
PROC: (CPT 24685; principal; 2023-06-29 09:50)
DX: S52.021A Displaced fracture of olecranon process without intraarticular extension of right ulna, initial encounter for closed fracture (principal); E11.9 Type 2 diabetes mellitus without complications; Z79.4 Long term (current) use of insulin; I10 Essential (primary) hypertension; W19.XXXA Unspecified fall, initial encounter; E78.5 Hyperlipidemia, unspecified; Z79.82 Long term (current) use of aspirin
CPT/HCPCS: 24685; 01740; 73070; 76000; 82962; 93005; C1713; J7120; J2405

== ENCOUNTER 2023-07-20 12:30 | Outpatient (RCR) | payer OTHER, SELFPAY ==
--- NOTE | 2023-07-18 14:10 | HP.PTEVAL ---
Patient's Visit Information Visit Information Visit Information: VIRI COURTNEY is a 72 year old M referred to Physical Therapy by Dr. Darwin Harmon MD with a diagnosis of displaced fracture r olecranon with fixation 07/06/23. Date of Evaluation: 07/18/23 Physical Therapist: Robin Winters, SANTOSHT, OCS, CSCS Visit Plan Frequency: 2-3x /Week Duration: 4-6 Weeks Plan: 2-3x/week for 4-6 weeks starting 3x./week for... 1. STM to R elbow for edema and soft tissue 2. AROM and PROM and gentle mobs R elbow to gain flexion and extension, ensure AROM exercises for surrounding joints to full ROM. <Manual therapy and exercise to tolerance. No resistance for now, focus on ROM ice as needed. 3. educate on fluid dynamics for health of R UE Subjective Subjective: Hurt R elbow by tripping over a short wall and landed on elbow and 200# into elbow. It hurt immediately. That was 3 weeks ago. Has percoset which makes him woozy and no appetite. 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 At supper time it really huirt. Went to ER. X ray showed fracture. Then had surgery a week later putting a plate in and screwing the elbow together. nerves, blood vessels might be messed up. surgery was 07/06/23. He bathed it in kerosene to stop bleeding after injury. Since then had a post op follow up and doing well, doctor talked him into therapy. Not doing any exercises at home. Precautions are no lifting. Sleep is not great due to pain. 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 : not working currently. [facility] ADLs: dressing is done by , Needs help at home with dressing, hard time opening belt to get to bathroom. Is right handed. Pain R elbow: Pain Intensity (Out of 10): 5 Pain Intensity Range: 0 and 8 Comment: only 0ainfree for 5 min at time. Objective Objective: R elbow -55 degree extension, 80 flexion angle, another 4 degrees passively with these. Shoulder flexion to 90 AROM and too painful PROM elbow to go further. wrist AROM ext 5 degrees and flexion 20 degrees, supination is 60and pronation is 25 degrees on the right. L wrist is 30 extension adn 45 flexion with 80 pronation adn supination. L shoulder is 155 elevation. L elbow is 180 extension and to 35 degree flexion . Overall most of the wrist and elbow and shoulder R AROM and PROM is limited by pain and muscle tightening near the end ranges. Does have a firm endfeel on these also and protected. Incision appears to have healed well as it is dry on the R posterior elbow and has some expected redness and obvious swelling R medial and posterior elbow and max tender to the touch in these areas. Pt holds R arm and elbow very protected and is hesitant to move it until I give him permission. An elbow limited like this limits R handed feeding, grooming and self care. Balance/Special Test Scores Quick DASH Score: 72.7250 Goals Goal 1:: ST: PROM shoulder, wrist and hand WNL R side without pain, elbow AROM35 flexion and -20 full extension. Goal Time Frame: 2-4 Weeks Goal 2:: ST: Pain 2/10 at worst and manageable Goal Time Frame: 2-4 Weeks Goal 3:: LT Funcitonal AROM R elbow for feeding and work to -10 full extension Goal Time Frame: 4-6 Weeks Goal 4:: Sleep without waking due to pain Goal Time Frame: 4-6 Weeks Goal 5:: Pt feel back to 90% of activities Goal Time Frame: 4-6 Weeks Goal 6:: quickdash 16 or better Goal Time Frame: 4-6 Weeks Rehabilitation Potential Physical Therapy Diagnosis: R elbow pain and stiffness post surgery fracture limiting function Rehabilitation Potential: Fair Anticipated Interventions Patient/Client Instruction: Educate patient on: Condition and Plan of Care For the Purpose of:: To decrease pain, To decrease swelling/inflammation, To increase ROM, To improve nutrient delivery to tissue, To improve muscle performance and motor function, To increase tolerance to activity/condition/position, To improve ability of physical actions for home/community/work/leisure and To improve gait and locomotor functions Therapeutic Exercise to Include: Postural training and Flexibilty training For the Purpose of:: To decrease pain, To decrease swelling/inflammation, To increase ROM, To improve nutrient delivery to tissue, To improve muscle performance and motor function and To increase tolerance to activity/condition/position Manual Therapy Techniques to Include: Mobilization, Passive ROM and Soft tissue mobilization For the Purpose of:: To decrease pain, To decrease swelling/inflammation, To increase ROM and To improve nutrient delivery to tissue TENS: Yes (r elbow) Cryotherapy (ice pack, ice massage): Yes For the Purpose of:: To decrease pain, To increase ROM and To improve nutrient delivery to tissue Text: Thank you for the opportunity to evaluate your patient. For Medicare and Medicare HMO plans, please review the plan of care and approve it. It will need to be FAXED BACK to us at [phone] for Medicare purposes. For Medicare only, by signing this I certify the plan of care. Please let me know if there are questions or concerns regarding this plan of care. Physician Signature: Date:
--- NOTE | 2023-09-27 13:26 | HP.PTDCNRP_ITS ---
Patient Information Patient Information: VIRI COURTNEY was seen in my office for initial evaluation on 07/18/23. The following Plan of Care was established for this patient: POC Established Initial Frequency: 2-3x /Week Initial Duration: 4-6 Weeks Anticipated Interventions Patient/Client Instruction: Educate patient on: Condition and Plan of Care For the Purpose of:: To decrease pain, To decrease swelling/inflammation, To increase ROM, To improve nutrient delivery to tissue, To improve muscle performance and motor function, To increase tolerance to activity/con dition/position, To improve ability of physical actions for home/community/work/leisure and To improve gait and locomotor functions Therapeutic Exercise to Include: Postural training and Flexibilty training For the Purpose of:: To decrease pain, To decrease swelling/inflammation, To increase ROM, To improve nutrient delivery to tissue, To improve muscle performance and motor function and To increase tolerance to activity/condition/position Manual Therapy Techniques to Include: Mobilization, Passive ROM and Soft tissue mobilization For the Purpose of:: To decrease pain, To decrease swelling/inflammation, To increase ROM and To improve nutrient delivery to tissue TENS: Yes (r elbow) Cryotherapy (ice pack, ice massage): Yes For the Purpose of:: To decrease pain, To increase ROM and To improve nutrient delivery to tissue Last Seen Last Seen: This patient was last seen in our office 07/20/23. Pertinent comments regarding their Physical therapy will appear below: Pt seen 2 visits of POC and was sent back to doctor after last visit due to possible signs of infection. He did not return since that visit. At this point, it has been over two months and I will discontinue due to nonattendance. At this point I will be discontinuing this patient from physical therapy. I would be happy to see this patient again in the future if found appropriate by the physician. Thank you! Robin Winters, DPT, OCS, CSCS Balance/Gait/Functional tests Balance/Special Test Scores Quick DASH Score: [phone]
== END 2023-07-20 19:00 | disposition home or self-care (01) ==
LOC: PT 12:30
PROVIDERS: PCP Family Medicine; Referring Provider Orthopaedic Surgery Sports Medicine; Visit Provider Orthopaedic Surgery Sports Medicine
DX: S52.021D Displaced fracture of olecranon process without intraarticular extension of right ulna, subsequent encounter for closed fracture with routine healing (principal)
CPT/HCPCS: 97110; 97140; 97161

== ENCOUNTER 2023-07-21 13:51 | Outpatient (RCR) | payer OTHER, SELFPAY ==
[2023-07-21 14:24] VITALS: BP 134/80; PULSE 77; RESP 18; TEMP 36.2
--- NOTE | 2023-07-22 12:28 | PCM.HP.STD ---
[facility] - General General Date of Service: 07/21/23 [facility] Narrative VIRI CASH, is a 72 M who presents to the wound healing center today as referred by Dr. Harmon. He is accompanied to his appointment by his family. Mr. Cash underwent ORIF of his R olecranon by Dr. Harmon on 06/29/2023. Starting around 07/20/23, patient reports he began to notice increased drainage from the central portion of his incision site. He reports he thought this was perhaps secondary to his using his elbow more in PT. Today, he had a f/u appointment in ortho and was noted to have a small area of dehiscence/stitch abscess/delayed healing. It was nted that the redness and warmth around this area seemed improved from his prior office visit on 07/18. Dr. Harmon did obtain wound cultures and initiated empiric antibiotics (Keflex 500mg PO every 6 hours x 10 days) as well as referring him here for continued evaluation and management of the wound. Patient was also instructed by ortho to skip tomorrow's PT and overall be less aggressive with his PT for now. Patient denies any prior history of nonhealing wounds. He is diabetic with history of poor glycemic control. He does not smoke. He denies any nausea, vomiting, fevers, chills, increased pain/swelling/redness around the wound. [facility] Medical History Fracture of right olecranon process Hyperlipidemia Hypertension Impacted cerumen of both ears Non-smoker Type 2 diabetes mellitus Wears dentures Wears glasses Home Medications aspirin 81 mg tablet,delayed release (Adult Low Dose Aspirin) 81 mg PO QDAY 02/08/18 [History Last Taken 06/28/23] latanoprost 0.005 % eye drops 1 drp ophthalmic (eye) QHS 04/14/22 [History Last Taken Unknown] ezetimibe 10 mg tablet 10 mg PO QDAY #90 tabs 06/21/23 [Rx Last Taken Unknown] flash glucose scanning reader (FreeStyle Garth 14 Day Casper) #1 ea 06/21/23 [Rx Last Taken Unknown] flash glucose sensor (FreeStyle Garth 14 Day Sensor kit) #1 ea 06/21/23 [Rx Last Taken Unknown] insulin glargine 100 unit/mL (3 mL) subcutaneous pen (Lantus Solostar U-100 Insulin) 60 unit (0.6 mL) subcut QPM #15 mL 06/21/23 [Rx Last Taken 06/29/23] insulin lispro 100 unit/mL subcutaneous pen (Humalog KwikPen (U-100) Insulin) 10 unit (0.1 mL) subcut TID #15 mL 06/21/23 [Rx Last Taken Unknown] lisinopril 10 mg tablet 10 mg PO QDAY #90 tabs 06/21/23 [Rx Last Taken 06/29/23] metformin 500 mg tablet 500 mg PO BID #180 tabs 06/21/23 [Rx Last Taken 06/29/23] rosuvastatin 20 mg tablet 20 mg PO QHS #90 tabs 06/21/23 [Rx Last Taken Unknown] dulaglutide 3 mg/0.5 mL subcutaneous pen injector 3 mg subcut ALEGRE 06/24/23 [History Last Taken Unknown] cephalexin 500 mg capsule 500 mg PO Q6H elbow infection 10 days #40 caps 07/21/23 [Rx Last Taken Unknown] Allergy/AdvReac Type Severity Reaction Status Date / Time acetaminophen [From Percocet] AdvReac Intermediate Nausea Verified 07/22/23 11:27 oxycodone [From Percocet] AdvReac Intermediate Nausea Verified 07/22/23 11:27 Family History Mother Diabetes Father Myocardial infarction Surgical History History of testicular cancer History of tooth extraction Social History Smoking Status: Never smoker alcohol intake: never substance use type: does not use what type of physical activity do you participate in: none Vital Signs Vital Signs Vital Signs: 07/21/23 14:24 Temperature 97.1 F L Temperature Source Temporal Pulse Rate 77 Respiratory Rate 18 Blood Pressure 134/80 H Blood Pressure Mean 98 Blood Pressure Source Monitor Blood Pressure Position Semi-Fowlers Blood Pressure Location Left Forearm Oxygen Delivery Method Room Air Physical Exam Const alert, oriented x3 and no apparent distress General Appearance: cooperative and comfortable HEENT normocephalic, head/scalp atraumatic, hearing grossly normal bilaterally, external ears normal and external nose normal Eyes EOMs intact bilaterally General Eye: normal appearance of both eyes Resp normal respiratory effort, no retractions and no use of accessory muscles Effort and Inspection: able to speak in complete sentences; Negative for respiratory distress Cardio regular rate and regular rhythm Extremity Extremity Narrative: R elbow incision site with small 1.5x1.4x0.4cm open wound at the tip of the olecranon process. There is pink granulation tissue at the base, there is some devitalized tissue secondary to silver nitrate in the wound bed. No tracking when probed. No exposed hardware or bone. Minimal serous drainage, no pus. No foul odor. Mild warmth and erythema immediately around the wound, but not extending beyond that. The rest of the incision is well-healed. 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 Will apply slightly moistened Carmita to the wound bed, cover with either silicone-border foam dressing or dry Kerlix wrap with nurse's hat/ABD pad for increased padding. Change the dressing once daily or more often as needed to keep clean and dry. When bathing, keep the area dry. Do not submerge the wound in water or allow it to soak. Continue with empiric antibiotics as prescribed by orthopedics. Pending C&S results, may need to change antibiotic regimen. Continue with PT as directed by orthopedics. I did advise patient against aggressive PT or overuse of the elbow. He does have Type 2 diabetes with a history of poor glycemic control which will complicate healing. Patient is instructed to focus on good blood sugar control. He is advised to increase protein in his diet and decrease carbs/sugar to help support wound healing. Return to wound care clinic in 1 week or sooner as needed. Charges/Coding Visit Charges Office Visits / Consults: 73286 OV L3 New Procedures Integumentary [id number]: [id number] Jodie subq tissue 20 sq cm/<
== END 2023-07-23 23:59 | disposition home or self-care (01) ==
LOC: WC 13:51
PROVIDERS: PCP Family Medicine; Referring Provider Orthopaedic Surgery Sports Medicine; Visit Provider Physician Assistant
DX: T81.31XA Disruption of external operation (surgical) wound, not elsewhere classified, initial encounter (principal); E11.9 Type 2 diabetes mellitus without complications; Z79.4 Long term (current) use of insulin; Y83.8 Other surgical procedures as the cause of abnormal reaction of the patient, or of later complication, without mention of misadventure at the time of the procedure; E78.5 Hyperlipidemia, unspecified; I10 Essential (primary) hypertension; S52.021S Displaced fracture of olecranon process without intraarticular extension of right ulna, sequela; Z79.82 Long term (current) use of aspirin; Z79.899 Other long term (current) drug therapy; Z79.84 Long term (current) use of oral hypoglycemic drugs
CPT/HCPCS: 11042; 99213; G0463

== ENCOUNTER → 2023-07-21 | Outpatient (CLI) | payer OTHER, SELFPAY ==
--- NOTE | 2023-07-21 10:02 | RAD_ITS ---
INDICATION: fu EXAMINATION/TECHNIQUE: X-RAY - RIGHT XR Elbow Min 3 Views COMPARISON: FINDINGS: SOFT TISSUES: There is posterior soft tissue swelling. There is a radiopaque 8mm density within the posterior soft tissue over the olecranon, not present on the previous study. BONES/JOINTS: There is no displacement of the anterior or posterior fat pads. ORIF at the proximal ulna. No acute fracture or subluxation. Normal alignment. Joint effusion. No sclerotic or destructive changes observed. RAD/Elbow min 3 Views IMPRESSION: Status post ORIF at the proximal olecranon. Joint effusion. There is posterior soft tissue swelling. There is a radiopaque 8mm density within the posterior soft tissue over the olecranon, not present on the previous study. Electronically Signed: Yoni Gonzalez DO at 17:24 EDT ,
[2023-07-21 12:04] LABS: Absolute Lymphocyte Count 0.95 X10^3/uL (0.83-4.51); Absolute Neutrophil Count 2.5 X10^3/uL (2.0-7.7); Basophil# 0.03 X10^3/uL; Basophil% 0.8 % (0-1); Eosinophil# 0.11 X10^3/uL; Eosinophils% 2.8 % (0-5); Hematocrit 37.5 % (40-54); Hemoglobin 12.3 g/dL (13.0-16.5); Lymphocyte # 0.95 X10^3/ul (0.83-4.51); Lymphocyte % 24.4 % (19-41); Mean Corp Hgb Conc 32.8 g/dL (32-36); Mean Corpuscular Volume 85.2 fL (80-94); Mean Platelet Vol. 9.3 fl (6.2-12.0); Monocyte# 0.32 X10^3/uL; Monocyte% 8.2 % (0-10); NRBC Flagged by Analyzer 0 % (0-5); Neutrophil # 2.47 X10^3/uL (2.7-7.7); Neutrophil % 63.3 % (47-70); Platelet Count 323 K/mm3 (150-450); RBC Distribution Width CV 11.9 % (11.6-14.6); RBC Distribution Width SD 36.9 fl (35.1-43.9); White Blood Count 3.9 K/mm3 (4.4-11.0)
== END | disposition home or self-care (01) ==
LOC: MTLAB 09:58
PROVIDERS: PCP Family Medicine; Referring Provider Orthopaedic Surgery Sports Medicine; Visit Provider Orthopaedic Surgery Sports Medicine
DX: S52.021A Displaced fracture of olecranon process without intraarticular extension of right ulna, initial encounter for closed fracture (principal); T81.89XA Other complications of procedures, not elsewhere classified, initial encounter
CPT/HCPCS: 36415; 73080; 85025; 86140; 87070; 87077; 87186; 87205

== ENCOUNTER → 2023-08-05 | Outpatient (CLI) | payer OTHER, SELFPAY ==
[2023-08-05 15:15] LABS: Absolute Lymphocyte Count 1.25 X10^3/uL (0.83-4.51); Absolute Neutrophil Count 2.5 X10^3/uL (2.0-7.7); Basophil# 0.01 X10^3/uL; Basophil% 0.2 % (0-1); Eosinophil# 0.08 X10^3/uL; Eosinophils% 1.9 % (0-5); Hematocrit 37.7 % (40-54); Hemoglobin 11.7 g/dL (13.0-16.5); Lymphocyte # 1.25 X10^3/ul (0.83-4.51); Lymphocyte % 30.4 % (19-41); Mean Corpuscular Hgb 27.3 pg (27.0-32.0); Mean Corpuscular Volume 88.1 fL (80-94); Mean Platelet Vol. 9.5 fl (6.2-12.0); Monocyte# 0.29 X10^3/uL; Monocyte% 7.1 % (0-10); NRBC Flagged by Analyzer 0 % (0-5); Neutrophil # 2.47 X10^3/uL (2.7-7.7); Neutrophil % 60.2 % (47-70); Platelet Count 281 K/mm3 (150-450); RBC Distribution Width CV 13.4 % (11.6-14.6); Red Blood Count 4.28 M/mm3 (4.6-6.2); White Blood Count 4.1 K/mm3 (4.4-11.0)
[2023-08-05 15:37] LABS: CRP 4.09 mg/L (0.0-3.0)
== END | disposition home or self-care (01) ==
LOC: MTLAB 13:13
PROVIDERS: PCP Family Medicine; Referring Provider Orthopaedic Surgery Sports Medicine; Visit Provider Orthopaedic Surgery Sports Medicine
DX: L08.9 Local infection of the skin and subcutaneous tissue, unspecified (principal); B96.89 Other specified bacterial agents as the cause of diseases classified elsewhere; T81.89XA Other complications of procedures, not elsewhere classified, initial encounter
CPT/HCPCS: 36415; 85025; 86140

== ENCOUNTER 2023-08-18 13:15 | Outpatient (RCR) | payer OTHER, SELFPAY ==
[2023-07-24 00:31] VITALS: BP 134/80; PULSE 77; RESP 18; TEMP 36.2
[2023-07-28 15:08] VITALS: BP 148/72; PULSE 78; RESP 18; TEMP 36.5
--- NOTE | 2023-07-28 17:47 | PCM.WC.PN ---
History of Present Illness Date of Service: 07/28/23 Subjective Subjective He has been doing well with dressing changes. He still notes some thicker white-yellow drainage, but primarily yellow-clear drainage. He denies any foul odor, increased redness, increased swelling, new/worsened pain, nausea, vomiting, fevers, or chills. He was switched to doxycycline per sensitivity results and he is tolerating the antibiotic without issue. He did see ID on Tuesday and reports no subsequent changes to his antibiotics. Objective Data Objective Data Vital Signs: Vital Signs Temp Pulse Resp BP O2 Del Method 97.7 F L 78 18 148/72 H Room Air 07/28/23 15:08 07/28/23 15:08 07/28/23 15:08 07/28/23 15:08 07/28/23 15:08 Oxygen Delivery Method Room Air Physical Exam Const alert, oriented x3 and no apparent distress General Appearance: cooperative and comfortable HEENT normocephalic, head/scalp atraumatic, hearing grossly normal bilaterally, external ears normal and external nose normal Eyes EOMs intact bilaterally General Eye: normal appearance of both eyes Resp normal respiratory effort, no retractions and no use of accessory muscles Effort and Inspection: able to speak in complete sentences; Negative for respiratory distress Cardio regular rate and regular rhythm Extremity Extremity Narrative: R elbow incision site with small open wound at the tip of the olecranon process, slightly larger from last week's measurement but overall improved in appearance. The base is pink/red granulation tissue. There was a visible spitting stitch which was removed. No tracking when probed. No exposed hardware or bone. Minimal serous drainage, but no purulent drainage able to be expressed. No foul odor, focal swelling, fluctuance, or induration. Erythema around the wound appears improved this week, no significant warmth appreciated. Psych mental status grossly normal Appearance: grossly normal Attitude: calm and engaged Activity / Motor Behavior: appropriate eye contact Speech: normal speech Debridement Note Debridement Note Post-Debridement Measurements and Additional Note: Post-Debridement Measurements/Treatment TEZ - Nurse 1 - General Ulcer Assessment Start: 07/28/23 15:07 Freq: Status: Active Protocol: YOBANI Activity Type Activity Date Activity User E-sign Co-sign Detail Recorded Client Recorded Date Recorded By Document 07/28/23 15:08 KW Desktop 07/28/23 15:16 KW 07/28/23 15:08 - Today's Visit Information Type of service Follow-up Visit (Physician/[employer] ) Arrival Mode Ambulatory Patient Identification Verified (Name & Yes ) Vital Signs Temperature (97.8 F-99.1 F) 97.7 F L Temperature Source Temporal Pulse Rate (60-100) 78 Pulse Location Monitor Respiratory Rate (12-18) 18 Respiratory rate source Observation Oxygen Delivery Method Room Air Blood Pressure (90/60-120/80) 148/72 H Blood Pressure Mean (mm Hg) 97 Source Monitor Position Semi-Fowlers Blood Pressure Location Left Arm History Since Last Visit- (Skip if this is Patient's initial visit) Have you changed medications since your Yes last visit? Any new allergies or adverse reactions No Had a fall/change in ADL's that may No increase risk of falls Signs or symptoms of abuse and/or No neglect since last visit Have you been in the hospital since your No last visit? Has dressing in place as prescribed Yes Has compression in place as prescribed Yes Has offloadiing in place as prescribed No Experienced any changes in pain level or No management Left Footwear Regular Shoe Right Footwear Regular Shoe Pain Scale: 0-10 Numeric Is Patient Pain Free? Yes - Nurse 1 - General Ulcer Measurement Start: 07/28/23 15:07 Freq: Status: Active Protocol: Activity Type Activity Date Activity User E-sign Co-sign Detail Recorded Client Recorded Date Recorded By Document 07/28/23 15:08 KW Desktop 07/28/23 15:16 KW 07/28/23 15:08 Wound Center Nurse 1 #1 RT ELBOW -Current Size (cm) - Length 3.1 -Current Size (cm) - Width 1.6 -Current Size (cm) - Depth 0.5 -Total Square Cm 4.96 -Exudate Amt Small -Exudate Type Serosanguineous -Wound Margin Distinct, Outline Attached -Granulation Amt Medium (34-66%) -Granulation Quality Red -Necrosis Amt Small (1-33%) -Necrotic Tissue Type Adherent Slough -Texture (Bridget-wound Skin Appearance) Assessed, Localized Edema -Moisture (Bridget-wound Skin Appearance) Assessed, Weeping -Color (Bridget-wound Skin Appearance) Assessed, Erythema -Temperature (Bridget-wound Skin Hot Appearance) -Ulcer Cleansing Rinsed/ Irrigated with Saline -Foul Odor after Cleansing No -Anesthetic Used 5% Lidocaine Gel - Nurse 2 - General Ulcer CM Notes Start: 07/28/23 15:07 Freq: Status: Active Protocol: Activity Type Activity Date Activity User E-sign Co-sign Detail Recorded Client Recorded Date Recorded By Document 07/28/23 15:20 GM [id number] 07/28/23 16:34 GM 07/28/23 15:20 Wound Center Nurse 2 -Time 15:30 -Correct Patient Yes -Correct Side, Site, Position Yes -Correct Procedure Yes -Procedure Performed Yes -Type of Procedure Debridement -Clinical Debridement Subcutaneous -Tissue Removed Subcutaneous -Post Debridement (cm) - Length 2.7 -Post Debridement (cm) - Width 0.9 -Post Debridement (cm) - Depth 0.4 -Total Square (Post) (cm) 2.43 -Area of Debridement (cm) - Length 2.7 -Area of Debridement (cm) - Width 0.9 -Total Square (Area) (cm) 2.43 -Tunneling No -Undermining/Tunneling No -Circular Undermining No -Wound/Ulcer Outcome Not Healed -Ulcer Cleansing Rinsed/ Irrigated with Saline -Foul Odor after Cleansing No -Bioengineered Tissue No -Bleeding Controlled with Pressure -Treatment Response Procedure Tolerated Well -Debridement - Subq, 1st 20sq cm Yes Pain Scale: 0-10 Numeric Is Patient Pain Free? Yes - Nurse 3 - General Ulcer D/C NN Start: 07/28/23 15:07 Freq: Status: Active Protocol: Activity Type Activity Date Activity User E-sign Co-sign Detail Recorded Client Recorded Date Recorded By Document 07/28/23 15:37 DL Desktop 07/28/23 15:38 DL 07/28/23 15:37 Wound Care Center Nurse 3 #1 RT ELBOW -Ulcer Cleansing Rinsed/ Irrigated with Saline -Foul Odor after Cleansing No -Primary Dressing Applied Promogran Carmita Matter -Primary Dressing Covered/Secured with Dry Gauze & Roll Gauze, Secured with Tape -Other Covering BONNIE -Promogran Carmita Matter 1 Treatment Response Procedure Tolerated Well Pain Scale: 0-10 Numeric Is Patient Pain Free? Yes WC - Visit Discharge Discharge Condition Stable Ambulatory Status Ambulatory Transportation Private Auto
--- NOTE | 2023-07-29 07:38 | HP.PCM_ITS ---
History of Present Illness Date of Service: 07/28/23 History of Wound: VIRI CASH, is a 72 M who presents to the wound healing center as referred by Dr. Harmon. He is accompanied to his appointment by his family. Mr. Cash underwent ORIF of his R olecranon by Dr. Harmon on 06/29/2023. Starting around 07/20/23, patient reports he began to notice increased drainage from the central portion of his incision site. He reports he thought this was perhaps secondary to his using his elbow more in PT. Today, he had a f/u appointment in ortho and was noted to have a small area of dehiscence/stitch abscess/delayed healing. It was noted that the redness and warmth around this area seemed improved from his prior office visit on 07/18. Dr. Harmon did obtain wound cultures and initiated empiric antibiotics (Keflex 500mg PO every 6 hours x 10 days) as well as referring him here for continued evaluation and management of the wound. Patient denies any prior history of nonhealing wounds. He is diabetic with history of poor glycemic control. He does not smoke. Progress of Wound: He has been doing well with dressing changes this week. He still notes some thicker white-yellow drainage, but primarily yellow-clear drainage. He denies any foul odor, increased redness, increased swelling, new/worsened pain, nausea, vomiting, fevers, or chills. He was switched to doxycycline per sensitivity results and he is tolerating the antibiotic without issue. He did see ID on Tuesday and reports no subsequent changes to his antibiotics. [facility] Medical History (Updated 07/25/23 @ 10:46 by Darwin Harmon MD) Fracture of right olecranon process Hyperlipidemia Hypertension Impacted cerumen of both ears Non-smoker Superficial bacterial infection of skin Type 2 diabetes mellitus Wears dentures Wears glasses Home Medications aspirin 81 mg tablet,delayed release (Adult Low Dose Aspirin) 81 mg PO QDAY 02/08/18 [History Last Taken 06/28/23] latanoprost 0.005 % eye drops 1 drp ophthalmic (eye) QHS 04/14/22 [History Last Taken Unknown] ezetimibe 10 mg tablet 10 mg PO QDAY #90 tabs 06/21/23 [Rx Last Taken Unknown] flash glucose scanning reader (FreeStyle Garth 14 Day [place]) #1 ea 06/21/23 [Rx Last Taken Unknown] flash glucose sensor (FreeStyle Garth 14 Day Sensor kit) #1 ea 06/21/23 [Rx Last Taken Unknown] insulin glargine 100 unit/mL (3 mL) subcutaneous pen (Lantus Solostar U-100 Insulin) 60 unit (0.6 mL) subcut QPM #15 mL 06/21/23 [Rx Last Taken 06/29/23] insulin lispro 100 unit/mL subcutaneous pen (Humalog KwikPen (U-100) Insulin) 10 unit (0.1 mL) subcut TID #15 mL 06/21/23 [Rx Last Taken Unknown] lisinopril 10 mg tablet 10 mg PO QDAY #90 tabs 06/21/23 [Rx Last Taken 06/29/23] metformin 500 mg tablet 500 mg PO BID #180 tabs 06/21/23 [Rx Last Taken 06/29/23] rosuvastatin 20 mg tablet 20 mg PO QHS #90 tabs 06/21/23 [Rx Last Taken Unknown] dulaglutide 3 mg/0.5 mL subcutaneous pen injector 3 mg subcut ALEGRE 06/24/23 [History Last Taken Unknown] cephalexin 500 mg capsule 500 mg PO Q6H elbow infection 10 days #40 caps 07/21/23 [Rx Last Taken Unknown] doxycycline monohydrate 100 mg tablet 100 mg PO BID infection 10 days #20 tabs 07/25/23 [Rx Last Taken Unknown] ibuprofen 200 mg tablet (Advil) 200 mg PO Q6H PRN 07/25/23 [History Last Taken Unknown] Allergy/AdvReac Type Severity Reaction Status Date / Time acetaminophen [From Percocet] AdvReac Intermediate Nausea Verified 07/25/23 10:23 oxycodone [From Percocet] AdvReac Intermediate Nausea Verified 07/25/23 10:23 Family History Mother Diabetes Father Myocardial infarction Surgical History History of testicular cancer History of tooth extraction Social History Smoking Status: Never smoker alcohol intake: never substance use type: does not use what type of physical activity do you participate in: none Vital Signs Vital Signs Vital Signs: 07/28/23 15:08 Temperature 97.7 F L Temperature Source Temporal Pulse Rate 78 Respiratory Rate 18 Blood Pressure 148/72 H Blood Pressure Mean 97 Blood Pressure Source Monitor Blood Pressure Position Semi-Fowlers Blood Pressure Location Left Arm Oxygen Delivery Method Room Air Physical Exam Const alert, oriented x3 and no apparent distress General Appearance: cooperative and comfortable HEENT normocephalic, head/scalp atraumatic, hearing grossly normal bilaterally, external ears normal and external nose normal Eyes EOMs intact bilaterally General Eye: normal appearance of both eyes Resp normal respiratory effort, no retractions and no use of accessory muscles Effort and Inspection: able to speak in complete sentences; Negative for respiratory distress Cardio regular rate and regular rhythm Extremity Extremity Narrative: R elbow incision site with small open wound at the tip of the olecranon process. The wound is slightly larger this week but improved in overall appearance. There is pink granulation tissue at the base, minimal slough/devitalized tissue. No tracking when probed. No exposed hardware or bone. There was a visible loosened stitch which was removed with debridement. Minimal serous drainage and no pur ulent drainage able to be expressed. No foul odor. Decreased periwound erythema from last week. No warmth appreciated around the wound. The rest of the incision is well-healed. Psych mental status grossly normal Appearance: grossly normal Attitude: calm and engaged Activity / Motor Behavior: appropriate eye contact Speech: normal speech Debridement Note Debridement Note Wound debrided: R elbow Laterality: Right Type of Debridement: Excisional debridement Anesthesia Used: 5% Lidocaine Gel Depth: Down to and including healthy tissue Percentage of wound debrided: 100 Instrument Used: 3mm curette and Forceps Tissue Removed: devitalized tissue Amount of bleeding with debridement: Mild Bleeding Controlled with: Pressure Patient tolerated procedure: Patient tolerated procedure well Post-Debridement Measurements and Additional Note: Post-Debridement Measurements/Treatment - Nurse 1 - General Ulcer Assessment Start: 07/28/23 15:07 Freq: Status: Active Protocol: YOBANI Activity Type Activity Date Activity User E-sign Co-sign Detail Recorded Client Recorded Date Recorded By Document 07/28/23 15:08 KW Desktop 07/28/23 15:16 KW 07/28/23 15:08 - Today's Visit Information Type of service Follow-up Visit (Physician/CLINICAL PROJECT ASSISTANT ) Arrival Mode Ambulatory Patient Identification Verified (Name & Yes ) Vital Signs Temperature (97.8 F-99.1 F) 97.7 F L Temperature Source Temporal Pulse Rate (60-100) 78 Pulse Location Monitor Respiratory Rate (12-18) 18 Respiratory rate source Observation Oxygen Delivery Method Room Air Blood Pressure (90/60-120/80) 148/72 H Blood Pressure Mean 97 Source Monitor Position Semi-Fowlers Blood Pressure Location Left Arm History Since Last Visit- (Skip if this is Patient's initial visit) Have you changed medications since your Yes last visit? Any new allergies or adverse reactions No Had a fall/change in ADL's that may No increase risk of falls Signs or symptoms of abuse and/or No neglect since last visit Have you been in the hospital since your No last visit? Has dressing in place as prescribed Yes Has compression in place as prescribed Yes Has offloadiing in place as prescribed No Experienced any changes in pain level or No management Left Footwear Regular Shoe Right Footwear Regular Shoe Pain Scale: 0-10 Numeric Is Patient Pain Free? Yes WC - Nurse 1 - General Ulcer Measurement Start: 07/28/23 15:07 Freq: Status: Active Protocol: Activity Type Activity Date Activity User E-sign Co-sign Detail Recorded Client Recorded Date Recorded By Document 07/28/23 15:08 KW Desktop 07/28/23 15:16 KW 07/28/23 15:08 Wound Center Nurse 1 #1 RT ELBOW -Current Size (cm) - Length 3.1 -Current Size (cm) - Width 1.6 -Current Size (cm) - Depth 0.5 -Total Square Cm 4.96 -Exudate Amt Small -Exudate Type Serosanguineous -Wound Margin Distinct, Outline Attached -Granulation Amt Medium (34-66%) -Granulation Quality Red -Necrosis Amt Small (1-33%) -Necrotic Tissue Type Adherent Slough -Texture (Bridegt-wound Skin Appearance) Assessed, Localized Edema -Moisture (Bridget-wound Skin Appearance) Assessed, Weeping -Color (Bridget-wound Skin Appearance) Assessed, Erythema -Temperature (Bridget-wound Skin Hot Appearance) -Ulcer Cleansing Rinsed/ Irrigated with Saline -Foul Odor after Cleansing No -Anesthetic Used 5% Lidocaine Gel WC - Nurse 2 - General Ulcer CM Notes Start: 07/28/23 15:07 Freq: Status: Active Protocol: Activity Type Activity Date Activity User E-sign Co-sign Detail Recorded Client Recorded Date Recorded By Document 07/28/23 15:20 [id number] 07/28/23 16:34 07/28/23 15:20 Wound Center Nurse 2 -Time 15:30 -Correct Patient Yes -Correct Side, Site, Position Yes -Correct Procedure Yes -Procedure Performed Yes -Type of Procedure Debridement -Clinical Debridement Subcutaneous -Tissue Removed Subcutaneous -Post Debridement (cm) - Length 2.7 -Post Debridement (cm) - Width 0.9 -Post Debridement (cm) - Depth 0.4 -Total Square (Post) (cm) 2.43 -Area of Debridement (cm) - Length 2.7 -Area of Debridement (cm) - Width 0.9 -Total Square (Area) (cm) 2.43 -Tunneling No -Undermining/Tunneling No -Circular Undermining No -Wound/Ulcer Outcome Not Healed -Ulcer Cleansing Rinsed/ Irrigated with Saline -Foul Odor after Cleansing No -Bioengineered Tissue No -Bleeding Controlled with Pressure -Treatment Response Procedure Tolerated Well -Debridement - Subq, 1st 20sq cm Yes Pain Scale: 0-10 Numeric Is Patient Pain Free? Yes - Nurse 3 - General Ulcer D/C NN Start: 07/28/23 15:07 Freq: Status: Active Protocol: Activity Type Activity Date Activity User E-sign Co-sign Detail Recorded Client Recorded Date Recorded By Document 07/28/23 15:37 DL Desktop 07/28/23 15:38 DL 07/28/23 15:37 Wound Care Center Nurse 3 #1 RT ELBOW -Ulcer Cleansing Rinsed/ Irrigated with Saline -Foul Odor after Cleansing No -Primary Dressing Applied Promogran Carmita Matter -Primary Dressing Covered/Secured with Dry Gauze & Roll Gauze, Secured with Tape -Other Covering BONNIE -Promogran Carmita Matter 1 Treatment Response Procedure Tolerated Well Pain Scale: 0-10 Numeric Is Patient Pain Free? Yes - Visit Discharge Discharge Condition Stable Ambulatory Status Ambulatory Transportation Private Auto Charges/Coding Procedures Integumentary 111xxx-113xx: 30070 Jodie subq tissue 20 sq cm/< Assessment/Plan Assessment/Plan (1) Nonhealing surgical wound: CODE(S): T81.89XA - Other complications of procedures, not elsewhere classified, initial encounter (2) Type 2 diabetes mellitus: CODE(S): E11.9 - Type 2 diabetes mellitus without complications QUALIFIERS: Diabetes mellitus termite treater helper insulin use: with fpc use Diabetes mellitus complication status: without complication Qualified Code(s): E11.9 - Type 2 diabetes mellitus without complications; Z79.4 - parts counterman (current) use of insulin PLAN: Plan Debridement was performed today and the patient tolerated it well. There was a visible loosened stitch in the wound bed which was easily removed. Continue to apply slightly moistened Carmita to the wound bed, cover with either silicone-border foam dressing or dry Kerlix wrap with nurse's hat/ABD pad for increased padding. Will add tubigrip over top for gentle compression and also to help hold dressings in place. Change the dressing once daily or more often as needed to keep clean and dry. When bathing, keep the area dry. Do not submerge the wound in water or allow it to soak. Continue with doxycycline as prescribed. He was instructed to take the antibiotics to completion even though it is feeling/looking better. Continue with PT as directed by orthopedics. I did advise patient against aggressive PT or overuse of the elbow. He does have Type 2 diabetes with a history of poor glycemic control which will complicate healing and we discussed this again today. I encourage him to focus on good blood sugar control as the process of healing continues. Return to wound care clinic in 1 week or sooner as needed.
[2023-08-04 13:22] VITALS: BP 139/84; PULSE 84; RESP 18; TEMP 36.9
--- NOTE | 2023-08-05 13:28 | PCM.WC.PN ---
History of Present Illness Date of Service: 08/05/23 History of Wound: VIRI COURTNEY, is a 72 M who presents to the wound healing center as referred by Dr. Harmon. He is accompanied to his appointment by his family. Mr. Courtney underwent ORIF of his R olecranon by Dr. Harmon on 06/29/2023. Starting around 07/20/23, patient reports he began to notice increased drainage from the central portion of his incision site. He reports he thought this was perhaps secondary to his using his elbow more in PT. Today, he had a f/u appointment in ortho and was noted to have a small area of dehiscence/stitch abscess/delayed healing. It was noted that the redness and warmth around this area seemed improved from his prior office visit on 07/18. Dr. Harmon did obtain wound cultures and initiated empiric antibiotics (Keflex 500mg PO every 6 hours x 10 days) as well as referring him here for continued evaluation and management of the wound. Patient denies any prior history of nonhealing wounds. He is diabetic with history of poor glycemic control. He does not smoke. Subjective Subjective He continues to do well with dressing changes. He reports minimal drainage, all yellow-clear. He has f/u with his orthopedic surgeon tomorrow. He is still on doxycycline as prescribed by orthopedics/ID, he has a couple days left. He denies any new or worsening pain, swelling, redness in the area. He inquires today about whether he can progress with activity/exercise at the elbow. Objective Data Objective Data Vital Signs: Vital Signs Temp Pulse Resp BP O2 Del Method 98.4 F 84 18 139/84 H Room Air 08/04/23 13:22 08/04/23 13:22 08/04/23 13:22 08/04/23 13:22 07/28/23 15:08 Oxygen Delivery Method Room Air Charges/Coding Procedures Integumentary 111xxx-[id number]: [id number] Jodie subq tissue 20 sq cm/< Physical Exam Const alert, oriented x3 and no apparent distress General Appearance: cooperative and comfortable HEENT normocephalic, head/scalp atraumatic, hearing grossly normal bilaterally, external ears normal and external nose normal Eyes EOMs intact bilaterally General Eye: normal appearance of both eyes Resp normal respiratory effort, no retractions and no use of accessory muscles Effort and Inspection: able to speak in complete sentences; Negative for respiratory distress Cardio regular rate and regular rhythm Extremity Extremity Narrative: R elbow incision site with small open wound at the tip of the olecranon process.The wound is much improved in size this week. There is pink granulation tissue at the base, minimal slough, no significant depth to probing. No drainage able to be expressed on exam. There is very mild erythema around the elbow but no appreciable warmth, overall periwound is improved in appearance as well. Psych mental status grossly normal Appearance: grossly normal Attitude: calm and engaged Activity / Motor Behavior: appropriate eye contact Speech: normal speech Debridement Note Debridement Note Wound debrided: R elbow Laterality: Right Type of Debridement: Excisional debridement Anesthesia Used: 5% Lidocaine Gel Depth: Down to and including healthy tissue Percentage of wound debrided: 100 Instrument Used: 3mm curette and Forceps Tissue Removed: devitalized tissue Amount of bleeding with debridement: Mild Bleeding Controlled with: Pressure Patient tolerated procedure: Patient tolerated procedure well Post-Debridement Measurements and Additional Note: Post-Debridement Measurements/Treatment - Nurse 1 - General Ulcer Assessment Start: 07/28/23 15:07 Freq: Status: Active Protocol: WC.LOWVIELKAT Activity Type Activity Date Activity User E-sign Co-sign Detail Recorded Client Recorded Date Recorded By Document 07/28/23 15:08 KW Desktop 07/28/23 15:16 KW Document 08/04/23 13:22 PL Desktop 08/04/23 13:23 PL 07/28/23 08/04/23 15:08 13:22 - Today's Visit Information Type of service Follow-up Visit Follow-up Visit (Physician/CABLEWAY OPERATOR (Physician/CABLEWAY OPERATOR ) ) Arrival Mode Ambulatory Ambulatory Transfer Assistance None Patient Identification Verified (Name & Yes Yes ) Patient Requires Transmission-Based No Precautions Safety Precautions NA Vital Signs Temperature (97.8 F-99.1 F) 97.7 F L 98.4 F Temperature Source Temporal Temporal Pulse Rate (60-100) 78 84 Pulse Location Monitor Respiratory Rate (12-18) 18 18 Respiratory rate source Observation Oxygen Delivery Method Room Air Blood Pressure (90/60-120/80) 148/72 H 139/84 H Blood Pressure Mean (mm Hg) 97 102 Source Monitor Position Semi-Fowlers Blood Pressure Location Left Arm History Since Last Visit- (Skip if this is Patient's initial visit) Have you changed medications since your Yes No last visit? Any new allergies or adverse reactions No No Had a fall/change in ADL's that may No No increase risk of falls Signs or symptoms of abuse and/or No No neglect since last visit Have you been in the hospital since your No No last visit? Has dressing in place as prescribed Yes Yes Has compression in place as prescribed Yes Yes Has offloadiing in place as prescribed No N/A Experienced any changes in pain level or No No management Left Footwear Regular Shoe Right Footwear Regular Shoe Pain Scale: 0-10 Numeric Is Patient Pain Free? Yes Yes - Nurse 1 - General Ulcer Measurement Start: 07/28/23 15:07 Freq: Status: Active Protocol: Activity Type Activity Date Activity User E-sign Co-sign Detail Recorded Client Recorded Date Recorded By Document 07/28/23 15:08 KW Desktop 07/28/23 15:16 KW 07/28/23 15:08 Wound Center Nurse 1 #1 RT ELBOW -Current Size (cm) - Length 3.1 -Current Size (cm) - Width 1.6 -Current Size (cm) - Depth 0.5 -Total Square Cm 4.96 -Exudate Amt Small -Exudate Type Serosanguineous -Wound Margin Distinct, Outline Attached -Granulation Amt Medium (34-66%) -Granulation Quality Red -Necrosis Amt Small (1-33%) -Necrotic Tissue Type Adherent Slough -Texture (Bridget-wound Skin Appearance) Assessed, Localized Edema -Moisture (Bridget-wound Skin Appearance) Assessed, Weeping -Color (Bridget-wound Skin Appearance) Assessed, Erythema -Temperature (Bridget-wound Skin Hot Appearance) -Ulcer Cleansing Rinsed/ Irrigated with Saline -Foul Odor after Cleansing No -Anesthetic Used 5% Lidocaine Gel - Nurse 2 - General Ulcer CM Notes Start: 07/28/23 15:07 Freq: Status: Active Protocol: Activity Type Activity Date Activity User E-sign Co-sign Detail Recorded Client Recorded Date Recorded By Document 07/28/23 15:20 GM [id number] 07/28/23 16:34 GM Document 08/04/23 17:29 PL [id number] 08/04/23 17:29 PL 07/28/23 08/04/23 15:20 17:29 Wound Center Nurse 2 #1 RT ELBOW -Time 15:30 13:28 -Correct Patient Yes Yes -Correct Side, Site, Position Yes Yes -Correct Procedure Yes Yes -Procedure Performed Yes Yes -Type of Procedure Debridement Debridement -Clinical Debridement Subcutaneous Subcutaneous -Tissue Removed Subcutaneous Subcutaneous -Post Debridement (cm) - Length 2.7 0.8 -Post Debridement (cm) - Width 0.9 0.2 -Post Debridement (cm) - Depth 0.4 0.1 -Total Square (Post) (cm) 2.43 0.16 -Area of Debridement (cm) - Length 2.7 0.8 -Area of Debridement (cm) - Width 0.9 0.2 -Total Square (Area) (cm) 2.43 0.16 -Tunneling No No -Undermining/Tunneling No No -Circular Undermining No No -Wound/Ulcer Outcome Not Healed Not Healed -Ulcer Cleansing Rinsed/ Rinsed/ Irrigated with Irrigated with Saline Saline -Foul Odor after Cleansing No No -Bioengineered Tissue No No -Bleeding Controlled with Pressure Pressure -Treatment Response Procedure Procedure Tolerated Well Tolerated Well -Debridement - Subq, 1st 20sq cm Yes Yes Pain Scale: 0-10 Numeric Is Patient Pain Free? Yes Yes - Nurse 3 - General Ulcer D/C NN Start: 07/28/23 15:07 Freq: Status: Active Protocol: Activity Type Activity Date Activity User E-sign Co-sign Detail Recorded Client Recorded Date Recorded By Document 07/28/23 15:37 Desktop 07/28/23 15:38 Document 08/04/23 13:57 Desktop 08/04/23 13:58 07/28/23 08/04/23 15:37 13:57 Wound Care Center Nurse 3 #1 RT ELBOW -Ulcer Cleansing Rinsed/ Rinsed/ Irrigated with Irrigated with Saline Saline -Foul Odor after Cleansing No No -Primary Dressing Applied Promogran Promogran Carmita Matter Carmita Matter -Primary Dressing Covered/Secured with Dry Gauze & Dry Gauze & Roll Gauze, Roll Gauze Secured with Tape -Other Covering BONNIE nurses hat with abd pad -Promogran Carmita Matter 1 1 Treatment Response Procedure Tolerated Well Pain Scale: 0-10 Numeric Is Patient Pain Free? 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 Continue to apply slightly moistened Carmita to the wound bed, cover with either silicone-border foam dressing or dry Kerlix wrap with nurse's hat/ABD pad for increased padding. He dislikes both the tubigrips and BONNIE wraps as they bunch and irritate his skin so will not apply either today. He is instructed to continue to change the dressing once daily or more often as needed to keep clean and dry. When bathing, keep the area dry. Do not submerge the wound in water or allow it to soak. Continue antibiotics per orthopedic/ID direction. No signs of new/worsening infection on exam today. I advised patient to discuss ongoing exercise/use of the elbow with orthopedic surgeon. Return to wound care clinic in 1 week or sooner as needed.
[2023-08-11 13:21] VITALS: BP 154/73; PULSE 77; RESP 18; TEMP 36.1
--- NOTE | 2023-08-12 08:00 | PN.PCM_ITS ---
History of Present Illness Date of Service: 08/11/23 History of Wound: VIRI COURTNEY, is a 72 M who presents to the wound healing center as referred by Dr. Harmon. He is accompanied to his appointment by his family. Mr. Courtney underwent ORIF of his R olecranon by Dr. Harmon on 06/29/2023. Starting around 07/20/23, patient reports he began to notice increased drainage from the central portion of his incision site. He reports he thought this was perhaps secondary to his using his elbow more in PT. Today, he had a f/u appointment in ortho and was noted to have a small area of dehiscence/stitch abscess/delayed healing. It was noted that the redness and warmth around this area seemed improved from his prior office visit on 07/18. Dr. Harmon did obtain wound cultures and initiated empiric antibiotics (Keflex 500mg PO every 6 hours x 10 days) as well as referring him here for continued evaluation and management of the wound. Patient denies any prior history of nonhealing wounds. He is diabetic with history of poor glycemic control. He does not smoke. Progress of Wound: Continues to do well with dressing changes. Saw ortho last week and antibiotics were extended. He reports minimal drainage, no expanding erythema or swelling, no significant pain over the last week. He denies any N/V, F/C. Objective Data Objective Data Vital Signs: Vital Signs Temp Pulse Resp BP O2 Del Method 97.0 F L 77 18 154/73 H Room Air 08/11/23 13:21 08/11/23 13:21 08/11/23 13:21 08/11/23 13:21 07/28/23 15:08 Oxygen Delivery Method Room Air Charges/Coding Procedures Integumentary [id number]: [id number] Jodie subq tissue 20 sq cm/< Physical Exam Const alert, oriented x3 and no apparent distress General Appearance: cooperative and comfortable HEENT normocephalic, head/scalp atraumatic, hearing grossly normal bilaterally, external ears normal and external nose normal Eyes EOMs intact bilaterally General Eye: normal appearance of both eyes Resp normal respiratory effort, no retractions and no use of accessory muscles Effort and Inspection: able to speak in complete sentences; Negative for respiratory distress Cardio regular rate and regular rhythm Extremity Extremity Narrative: R elbow incision site with small open portion. The wound is again reduced in size this week. There is pink granulation tissue at the base, minimal slough, no significant depth to probing. No drainage able to be expressed on exam. There is very mild erythema around the elbow but no appreciable warmth. Psych mental status grossly normal Appearance: grossly normal Attitude: calm and engaged Activity / Motor Behavior: appropriate eye contact Speech: normal speech Debridement Note Debridement Note Wound debrided: R elbow Laterality: Right Type of Debridement: Excisional debridement Anesthesia Used: 5% Lidocaine Gel Depth: Down to and including healthy tissue Percentage of wound debrided: 100 Instrument Used: 3mm curette and Forceps Tissue Removed: devitalized tissue Amount of bleeding with debridement: Mild Bleeding Controlled with: Pressure Patient tolerated procedure: Patient tolerated procedure well Post-Debridement Measurements and Additional Note: Post-Debridement Measurements/Treatment - Nurse 1 - General Ulcer Assessment Start: 07/28/23 15:07 Freq: Status: Active Protocol: [email or web address] Activity Type Activity Date Activity User E-sign Co-sign Detail Recorded Client Recorded Date Recorded By Document 07/28/23 15:08 KW Desktop 07/28/23 15:16 KW Document 08/04/23 13:22 PL Desktop 08/04/23 13:23 PL Document 08/11/23 13:21 JF Laptop 08/11/23 13:26 07/28/23 08/04/23 08/11/23 15:08 13:22 13:21 - Today's Visit Information Type of service Follow-up Visit Follow-up Visit Follow-up Visit (Physician/[employer]ICE [employer] (Physician/[employer] (Physician/[employer] ) ) ) Arrival Mode Ambulatory Ambulatory Ambulatory Transfer Assistance None Patient Identification Verified (Name & Yes Yes Yes ) Patient Requires Transmission-Based No No Precautions Safety Precautions NA Vital Signs Temperature (97.8 F-99.1 F) 97.7 F L 98.4 F 97.0 F L Temperature Source Temporal Temporal Temporal Pulse Rate (60-100) 78 84 77 Pulse Location Monitor Monitor Respiratory Rate (12-18) 18 18 18 Respiratory rate source Observation Observation Oxygen Delivery Method Room Air Blood Pressure (90/60-120/80) 148/72 H 139/84 H 154/73 H Blood Pressure Mean (mm Hg) 97 102 100 Source Monitor Monitor Position Semi-Fowlers Semi-Fowlers Blood Pressure Location Left Arm Right Arm History Since Last Visit- (Skip if this is Patient's initial visit) Have you changed medications since your Yes No No last visit? Any new allergies or adverse reactions No No No Had a fall/change in ADL's that may No No No increase risk of falls Signs or symptoms of abuse and/or No No No neglect since last visit Have you been in the hospital since your No No No last visit? Has dressing in place as prescribed Yes Yes No Has compression in place as prescribed Yes Yes Yes Has offloadiing in place as prescribed No N/A Yes Experienced any changes in pain level or No No No management Left Footwear Regular Shoe Regular Shoe Right Footwear Regular Shoe Regular Shoe Pain Scale: 0-10 Numeric Is Patient Pain Free? Yes Yes Yes WC - Nurse 1 - General Ulcer Measurement Start: 07/28/23 15:07 Freq: Status: Active Protocol: Activity Type Activity Date Activity User E-sign Co-sign Detail Recorded Client Recorded Date Recorded By Document 07/28/23 15:08 [place] Desktop 07/28/23 15:16 KW Document 08/11/23 13:21 Laptop 08/11/23 13:26 07/28/23 08/11/23 15:08 13:21 Wound Center Nurse 1 #1 RT ELBOW -Combined with other wound No -Current Size (cm) - Length 3.1 0.7 -Current Size (cm) - Width 1.6 0.6 -Current Size (cm) - Depth 0.5 0.1 -Total Square Cm 4.96 0.42 -Photo Taken Yes -Epithelialization Small 1-33% -Tunneling No -Undermining/Tunneling No -Circular Undermining No -Exudate Amt Small Small -Exudate Type Serosanguineous Serosanguineous -Wound Margin Distinct, Flat & Intact Outline Attached -Granulation Amt Medium (34-66%) Large (67-100%) -Granulation Quality Red Red -Slough/Fibrin Yes -Necrosis Amt Small (1-33%) Small (1-33%) -Necrotic Tissue Type Adherent Slough Adherent Slough -Structure Exposed N/A -Texture (Bridget-wound Skin Appearance) Assessed, Assessed, Localized Edema Localized Edema -Moisture (Bridget-wound Skin Appearance) Assessed, Assessed,Dry/ Weeping Scaly -Color (Bridget-wound Skin Appearance) Assessed, Assessed Erythema -Temperature (Bridget-wound Skin Hot No Abnormality Appearance) (Pt Warm) -Tenderness on Palpation (Bridget-wound No Skin Appearance) -Ulcer Cleansing Rinsed/ Rinsed/ Irrigated with Irrigated with Saline Saline -Foul Odor after Cleansing No No -Anesthetic Used 5% Lidocaine 5% Lidocaine Gel Gel Lower Limb Edema Present NA WC - Nurse 2 - General Ulcer CM Notes Start: 07/28/23 15:07 Freq: Status: Active Protocol: Activity Type Activity Date Activity User E-sign Co-sign Detail Recorded Client Recorded Date Recorded By Document 07/28/23 15:20 GM [id number] 07/28/23 16:34 GM Document 08/04/23 17:29 PL [id number] 08/04/23 17:29 PL Document 08/11/23 16:49 PL [id number] 08/11/23 16:50 PL 07/28/23 08/04/23 08/11/23 15:20 17:29 16:49 Wound Center Nurse 2 #1 RT ELBOW -Time 15:30 13:28 13:29 -Correct Patient Yes Yes Yes -Correct Side, Site, Position Yes Yes Yes -Correct Procedure Yes Yes Yes -Procedure Performed Yes Yes No -Type of Procedure Debridement Debridement Debridement -Clinical Debridement Subcutaneous Subcutaneous Subcutaneous -Tissue Removed Subcutaneous Subcutaneous Subcutaneous -Post Debridement (cm) - Length 2.7 0.8 0.3 -Post Debridement (cm) - Width 0.9 0.2 0.3 -Post Debridement (cm) - Depth 0.4 0.1 0.3 -Total Square (Post) (cm) 2.43 0.16 0.09 -Area of Debridement (cm) - Length 2.7 0.8 0.3 -Area of Debridement (cm) - Width 0.9 0.2 0.3 -Total Square (Area) (cm) 2.43 0.16 0.09 -Tunneling No No No -Undermining/Tunneling No No No -Circular Undermining No No No -Wound/Ulcer Outcome Not Healed Not Healed Not Healed -Ulcer Cleansing Rinsed/ Rinsed/ Rinsed/ Irrigated with Irrigated with Irrigated with Saline Saline Saline -Foul Odor after Cleansing No No No -Bioengineered Tissue No No No -Bleeding Controlled with Pressure Pressure Pressure -Treatment Response Procedure Procedure Procedure Tolerated Well Tolerated Well Tolerated Well -Debridement - Subq, 1st 20sq cm Yes Yes No Pain Scale: 0-10 Numeric Is Patient Pain Free? Yes Yes Yes WC - Nurse 3 - General Ulcer D/C NN Start: 07/28/23 15:07 Freq: Status: Active Protocol: Activity Type Activity Date Activity User E-sign Co-sign Detail Recorded Client Recorded Date Recorded By Document 07/28/23 15:37 DL Desktop 07/28/23 15:38 DL Document 08/04/23 13:57 JF Desktop 08/04/23 13:58 JF Document 08/11/23 13:42 Laptop 08/11/23 13:43 07/28/23 08/04/23 08/11/23 15:37 13:57 13:42 Wound Care Center Nurse 3 #1 RT ELBOW -Ulcer Cleansing Rinsed/ Rinsed/ Rinsed/ Irrigated with Irrigated with Irrigated with Saline Saline Saline -Foul Odor after Cleansing No No No -Primary Dressing Applied Promogran Promogran Promogran Carmita Matter Carmita Matter Carmita Matter -Primary Dressing Covered/Secured with Dry Gauze & Dry Gauze & Dry Gauze & Roll Gauze, Roll Gauze Roll Gauze, Secured with Secured with Tape Tape -Other Covering BONNIE nurses hat with nurses hat abd pad -Promogran Carmita Matter 1 1 1 Treatment Response Procedure Tolerated Well Pain Scale: 0-10 Numeric Is Patient Pain Free? 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 Continue to apply slightly moistened Carmita to the wound bed, cover with either silicone-border foam dressing or dry Kerlix wrap with nurse's hat/ABD pad for increased padding. He is instructed to continue to change the dressing once antoine ly or more often as needed to keep clean and dry. When bathing, keep the area dry. Do not submerge the wound in water or allow it to soak. Continue antibiotics per orthopedic/ID direction. No signs of new/worsening infection on exam today. Return to wound care clinic in 1 week or sooner as needed.
[2023-08-18 13:20] VITALS: BP 144/71; PULSE 75; RESP 18; TEMP 36.3
--- NOTE | 2023-08-19 08:06 | PN.PCM_ITS ---
History of Present Illness Date of Service: 08/18/23 History of Wound: VIRI COURTNEY, is a 72 M who presents to the wound healing center as referred by Dr. Harmon. He is accompanied to his appointment by his family. Mr. Courtney underwent ORIF of his R olecranon by Dr. Harmon on 06/29/2023. Starting around 07/20/23, patient reports he began to notice increased drainage from the central portion of his incision site. He reports he thought this was perhaps secondary to his using his elbow more in PT. Today, he had a f/u appointment in ortho and was noted to have a small area of dehiscence/stitch abscess/delayed healing. It was noted that the redness and warmth around this area seemed improved from his prior office visit on 07/18. Dr. Harmon did obtain wound cultures and initiated empiric antibiotics (Keflex 500mg PO every 6 hours x 10 days) as well as referring him here for continued evaluation and management of the wound. Patient denies any prior history of nonhealing wounds. He is diabetic with history of poor glycemic control. He does not smoke. Progress of Wound: Patient has continued to do well with wound care at home. The wound is significantly improved, there is a very small, superficial open area right over the elbow and another very small, superficial area proximal to the elbow. He reports no pain in the area, no new or worsening redness/swelling/drainage, no N/V, F/C. He follows up with orthopedics tomorrow. Objective Data Objective Data Vital Signs: Vital Signs Temp Pulse Resp BP O2 Del Method 97.3 F L 75 18 144/71 H Room Air 08/18/23 13:20 08/18/23 13:20 08/18/23 13:20 08/18/23 13:20 08/18/23 13:20 Oxygen Delivery Method Room Air Charges/Coding Visit Charges Office Visits / Consults: 27605 OV L3 Est Physical Exam Const alert, oriented x3 and no apparent distress General Appearance: cooperative and comfortable HEENT normocephalic, head/scalp atraumatic, hearing grossly normal bilaterally, external ears normal and external nose normal Eyes EOMs intact bilaterally General Eye: normal appearance of both eyes Resp normal respiratory effort, no retractions and no use of accessory muscles Effort and Inspection: able to speak in complete sentences; Negative for respiratory distress Cardio regular rate and regular rhythm Extremity Extremity Narrative: R elbow incision site with 2 small open areas which are very superficial with pink granulation tissue at the base, no appreciable drainage. There is no significant redness, warmth, fluctuance, or induration. Overall improved in appearance from last week. Psych mental status grossly normal Appearance: grossly normal Attitude: calm and engaged Activity / Motor Behavior: appropriate eye contact Speech: normal speech Debridement Note Debridement Note No debridement was completed: No debridement was completed today Post-Debridement Measurements and Additional Note: Post-Debridement Measurements/Treatment - Nurse 1 - General Ulcer Assessment Start: 07/28/23 15:07 Freq: Status: Active Protocol: .[email or web address] Activity Type Activity Date Activity User E-sign Co-sign Detail Recorded Client Recorded Date Recorded By Document 07/28/23 15:08 KW Desktop 07/28/23 15:16 KW Document 08/04/23 13:22 PL Desktop 08/04/23 13:23 PL Document 08/11/23 13:21 JF Laptop 08/11/23 13:26 JF Document 08/18/23 13:20 KW Desktop 08/18/23 13:31 KW 07/28/23 08/04/23 08/11/23 15:08 13:22 13:21 - Today's Visit Information Type of service Follow-up Visit Follow-up Visit Follow-up Visit (Physician/ADMINISTRATIVE UNDERWRITER (Physician/ADMINISTRATIVE UNDERWRITER (Physician/ADMINISTRATIVE UNDERWRITER ) ) ) Arrival Mode Ambulatory Ambulatory Ambulatory Transfer Assistance None Patient Identification Verified (Name & Yes Yes Yes ) Patient Requires Transmission-Based No No Precautions Safety Precautions NA Vital Signs Temperature (97.8 F-99.1 F) 97.7 F L 98.4 F 97.0 F L Temperature Source Temporal Temporal Temporal Pulse Rate (60-100) 78 84 77 Pulse Location Monitor Monitor Respiratory Rate (12-18) 18 18 18 Respiratory rate source Observation Observation Oxygen Delivery Method Room Air Blood Pressure (90/60-120/80) 148/72 H 139/84 H 154/73 H Blood Pressure Mean (mm Hg) 97 102 100 Source Monitor Monitor Position Semi-Fowlers Semi-Fowlers Blood Pressure Location Left Arm Right Arm History Since Last Visit- (Skip if this is Patient's initial visit) Have you changed medications since your Yes No No last visit? Any new allergies or adverse reactions No No No Had a fall/change in ADL's that may No No No increase risk of falls Signs or symptoms of abuse and/or No No No neglect since last visit Have you been in the hospital since your No No No last visit? Has dressing in place as prescribed Yes Yes No Has compression in place as prescribed Yes Yes Yes Has offloadiing in place as prescribed No N/A Yes Experienced any changes in pain level or No No No management Left Footwear Regular Shoe Regular Shoe Right Footwear Regular Shoe Regular Shoe Pain Scale: 0-10 Numeric Is Patient Pain Free? Yes Yes Yes 08/18/23 13:20 - Today's Visit Information Type of service Follow-up Visit (Physician/ADMINISTRATIVE UNDERWRITER ) Arrival Mode Ambulatory Transfer Assistance Patient Identification Verified (Name & Yes ) Patient Requires Transmission-Based Precautions Safety Precautions Vital Signs Temperature (97.8 F-99.1 F) 97.3 F L Temperature Source Temporal Pulse Rate (60-100) 75 Pulse Location Monitor Respiratory Rate (12-18) 18 Respiratory rate source Observation Oxygen Delivery Method Room Air Blood Pressure (90/60-120/80) 144/71 H Blood Pressure Mean (mm Hg) 95 Source Monitor Position Semi-Fowlers Blood Pressure Location Left Arm History Since Last Visit- (Skip if this is Patient's initial visit) Have you changed medications since your No last visit? Any new allergies or adverse reactions No Had a fall/change in ADL's that may No increase risk of falls Signs or symptoms of abuse and/or No neglect since last visit Have you been in the hospital since your No last visit? Has dressing in place as prescribed No Has compression in place as prescribed No Has offloadiing in place as prescribed N/A Experienced any changes in pain level or No management Left Footwear Regular Shoe Right Footwear Regular Shoe Pain Scale: 0-10 Numeric Is Patient Pain Free? Yes - Nurse 1 - General Ulcer Measurement Start: 07/28/23 15:07 Freq: Status: Active Protocol: Activity Type Activity Date Activity User E-sign Co-sign Detail Recorded Client Recorded Date Recorded By Document 07/28/23 15:08 KW Desktop 07/28/23 15:16 KW Document 08/11/23 13:21 JF Laptop 08/11/23 13:26 Document 08/18/23 13:20 KW Desktop 10/26/23 13:31 KW 07/28/23 08/11/23 08/18/23 15:08 13:21 13:20 Wound Center Nurse 1 #1 RT ELBOW -Combined with other wound No -Current Size (cm) - Length 3.1 0.7 0.1 -Current Size (cm) - Width 1.6 0.6 0.1 -Current Size (cm) - Depth 0.5 0.1 0.1 -Total Square Cm 4.96 0.42 0.01 -Photo Taken Yes -Epithelialization Small 1-33% -Tunneling No -Undermining/Tunneling No -Circular Undermining No -Exudate Amt Small Small None Present -Exudate Type Serosanguineous Serosanguineous -Wound Margin Distinct, Flat & Intact Distinct, Outline Outline Attached Attached -Granulation Amt Medium (34-66%) Large (67-100%) -Granulation Quality Red Red -Slough/Fibrin Yes -Necrosis Amt Small (1-33%) Small (1-33%) -Necrotic Tissue Type Adherent Slough Adherent Slough -Structure Exposed N/A -Texture (Bridget-wound Skin Appearance) Assessed, Assessed, Assessed Localized Edema Localized Edema -Moisture (Bridget-wound Skin Appearance) Assessed, Assessed,Dry/ Assessed Weeping Scaly -Color (Bridget-wound Skin Appearance) Assessed, Assessed Assessed Erythema -Temperature (Bridget-wound Skin Hot No Abnormality No Abnormality Appearance) (Pt Warm) (Pt Warm) -Tenderness on Palpation (Bridget-wound No Skin Appearance) -Ulcer Cleansing Rinsed/ Rinsed/ Rinsed/ Irrigated with Irrigated with Irrigated with Saline Saline Saline -Foul Odor after Cleansing No No -Anesthetic Used 5% Lidocaine 5% Lidocaine 5% Lidocaine Gel Gel Gel Lower Limb Edema Present NA WC - Nurse 2 - General Ulcer CM Notes Start: 07/28/23 15:07 Freq: Status: Active Protocol: Activity Type Activity Date Activity User E-sign Co-sign Detail Recorded Client Recorded Date Recorded By Document 07/28/23 15:20 GM [id number] 07/28/23 16:34 GM Document 08/04/23 17:29 PL [id number] 08/04/23 17:29 PL Document 08/11/23 16:49 PL [id number] 08/11/23 16:50 PL 1008/04/23 08/11/23 15:20 17:29 16:49 Wound Center Nurse 2 #1 RT ELBOW -Time 15:30 13:28 13:29 -Correct Patient Yes Yes Yes -Correct Side, Site, Position Yes Yes Yes -Correct Procedure Yes Yes Yes -Procedure Performed Yes Yes No -Type of Procedure Debridement Debridement Debridement -Clinical Debridement Subcutaneous Subcutaneous Subcutaneous -Tissue Removed Subcutaneous Subcutaneous Subcutaneous -Post Debridement (cm) - Length 2.7 0.8 0.3 -Post Debridement (cm) - Width 0.9 0.2 0.3 -Post Debridement (cm) - Depth 0.4 0.1 0.3 -Total Square (Post) (cm) 2.43 0.16 0.09 -Area of Debridement (cm) - Length 2.7 0.8 0.3 -Area of Debridement (cm) - Width 0.9 0.2 0.3 -Total Square (Area) (cm) 2.43 0.16 0.09 -Tunneling No No No -Undermining/Tunneling No No No -Circular Undermining No No No -Wound/Ulcer Outcome Not Healed Not Healed Not Healed -Ulcer Cleansing Rinsed/ Rinsed/ Rinsed/ Irrigated with Irrigated with Irrigated with Saline Saline Saline -Foul Odor after Cleansing No No No -Bioengineered Tissue No No No -Bleeding Controlled with Pressure Pressure Pressure -Treatment Response Procedure Procedure Procedure Tolerated Well Tolerated Well Tolerated Well -Debridement - Subq, 1st 20sq cm Yes Yes No Pain Scale: 0-10 Numeric Is Patient Pain Free? Yes Yes Yes WC - Nurse 3 - General Ulcer D/C NN Start: 07/28/23 15:07 Freq: Status: Active Protocol: Activity Type Activity Date Activity User E-sign Co-sign Detail Recorded Client Recorded Date Recorded By Document 07/28/23 15:37 DL Desktop 07/28/23 15:38 DL Document 08/04/23 13:57 JF Desktop 08/04/23 13:58 JF Document 08/11/23 13:42 JF Laptop 08/11/23 13:43 JF Document 08/18/23 13:52 DL Desktop 08/18/23 13:53 DL 07/28/23 08/04/23 08/11/23 15:37 13:57 13:42 Wound Care Center Nurse 3 #1 RT ELBOW -Ulcer Cleansing Rinsed/ Rinsed/ Rinsed/ Irrigated with Irrigated with Irrigated with Saline Saline Saline -Foul Odor after Cleansing No No No -Primary Dressing Applied Promogran Promogran Promogran Carmita Matter Carmita Matter Carmita Matter -Primary Dressing Covered/Secured with Dry Gauze & Dry Gauze & Dry Gauze & Roll Gauze, Roll Gauze Roll Gauze, Secured with Secured with Tape Tape -Other Covering BONNIE nurses hat with nurses hat abd pad -Promogran Carmita Matter 1 1 1 Treatment Response Procedure Tolerated Well Pain Scale: 0-10 Numeric Is Patient Pain Free? Yes Yes Yes WC - Visit Discharge Discharge Condition Stable Stable Stable Ambulatory Status Ambulatory Ambulatory Ambulatory Transportation Private Auto Private Auto Private Auto Medication Reconcilliation completed & No Yes provided to patient/care provider Clinical Summary of Care Provided Yes 08/18/23 13:52 Wound Care Center Nurse 3 #1 RT ELBOW -Ulcer Cleansing Rinsed/ Irrigated with Saline -Foul Odor after Cleansing No -Primary Dressing Applied Promogran Carmita Matter -Primary Dressing Covered/Secured with Dry Gauze, Secured with Tape -Other Covering -Promogran Carmita Matter 1 Treatment Response Procedure Tolerated Well Pain Scale: 0-10 Numeric Is Patient Pain Free? Yes WC - Visit Discharge Discharge Condition Stable Ambulatory Status Ambulatory Transportation Private Auto Medication Reconcilliation completed & provided to patient/care provider Clinical Summary of Care Provided Assessment/Plan Assessment/Plan (1) Nonhealing surgical wound: CODE(S): T81.89XA - Other complications of procedures, not elsewhere classified, initial encounter (2) Type 2 diabetes mellitus: CODE(S): E11.9 - Type 2 diabetes mellitus without complications QUALIFIERS: Diabetes mellitus group home insulin use: with terminal computer operator use Diabetes mellitus complication status: without complication Qualified Code(s): E11.9 - Type 2 diabetes mellitus without complications; Z79.4 - [facility] (current) use of insulin PLAN: Plan The wound is again improved in in size and appearance from last week. No debridement was necessary today. Continue to apply slightly moistened Carmita to the wound bed, cover with either silicone-border foam dressing or dry Kerlix wrap with nurse's hat/ABD pad for increased padding. He is instructed to continue to change the dressing once daily or more often as needed to keep clean and dry. When bathing, keep the area dry. Do not submerge the wound in water or allow it to soak. Continue antibiotics per orthopedic/ID direction. No signs of new/worsening infection on exam today. At this time I think he is appropriate for follow-up in 2 weeks. He understands to return sooner as needed.
== END 2023-08-23 23:59 | disposition home or self-care (01) ==
LOC: WC 13:15
PROVIDERS: PCP Family Medicine; Referring Provider Orthopaedic Surgery Sports Medicine; Visit Provider Physician Assistant
DX: T81.31XA Disruption of external operation (surgical) wound, not elsewhere classified, initial encounter (principal); Z79.4 Long term (current) use of insulin; E11.9 Type 2 diabetes mellitus without complications; T81.41XA Infection following a procedure, superficial incisional surgical site, initial encounter; Y83.8 Other surgical procedures as the cause of abnormal reaction of the patient, or of later complication, without mention of misadventure at the time of the procedure; I10 Essential (primary) hypertension; E78.5 Hyperlipidemia, unspecified; Z79.82 Long term (current) use of aspirin; Z79.84 Long term (current) use of oral hypoglycemic drugs; Z79.899 Other long term (current) drug therapy
CPT/HCPCS: 11042; 99213; G0463

== ENCOUNTER 2023-09-01 13:04 | Outpatient (RCR) | payer OTHER, SELFPAY ==
[2023-08-24 00:44] VITALS: BP 144/71; PULSE 75; RESP 18; TEMP 36.3
[2023-09-01 13:08] VITALS: BP 128/71; PULSE 86; TEMP 36
--- NOTE | 2023-09-06 09:54 | PN.PCM_ITS ---
History of Present Illness Date of Service: 09/01/23 History of Wound: VIRI COURTNEY, is a 72 M who presents to the wound healing center as referred by Dr. Harmon. He is accompanied to his appointment by his family. Mr. Courtney underwent ORIF of his R olecranon by Dr. Harmon on 06/29/2023. Starting around 07/20/23, patient reports he began to notice increased drainage from the central portion of his incision site. He reports he thought this was perhaps secondary to his using his elbow more in PT. Today, he had a f/u appointment in ortho and was noted to have a small area of dehiscence/stitch abscess/delayed healing. It was noted that the redness and warmth around this area seemed improved from his prior office visit on 07/18. Dr. Harmon did obtain wound cultures and initiated empiric antibiotics (Keflex 500mg PO every 6 hours x 10 days) as well as referring him here for continued evaluation and management of the wound. Patient denies any prior history of nonhealing wounds. He is diabetic with history of poor glycemic control. He does not smoke. Subjective Subjective Patient is healed today. Objective Data Objective Data Vital Signs: Vital Signs Temp Pulse Resp BP O2 Del Method 96.8 F L 86 18 128/71 H Room Air 09/01/23 13:08 09/01/23 13:08 08/24/23 00:44 09/01/23 13:08 09/01/23 13:08 Oxygen Delivery Method Room Air Charges/Coding Visit Charges Office Visits / Consults: 20039 OV L3 Est Physical Exam Const alert, oriented x3 and no apparent distress General Appearance: cooperative and comfortable HEENT normocephalic, head/scalp atraumatic, hearing grossly normal bilaterally, external ears normal and external nose normal Eyes EOMs intact bilaterally General Eye: normal appearance of both eyes Resp normal respiratory effort, no retractions and no use of accessory muscles Effort and Inspection: able to speak in complete sentences; Negative for respiratory distress Cardio regular rate and regular rhythm Extremity Extremity Narrative: R elbow incisional site wound is healed today. No open areas remain. No redness, swelling, fluctuance, induration, warmth, tenderness. 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 He has follow-up with orthopedics scheduled in a few weeks. Return as needed.
== END 2023-09-01 16:10 | disposition home or self-care (01) ==
LOC: WC 13:04
PROVIDERS: PCP Family Medicine; Referring Provider Orthopaedic Surgery Sports Medicine; Visit Provider Physician Assistant
DX: Z09 Encounter for follow-up examination after completed treatment for conditions other than malignant neoplasm (principal); E11.9 Type 2 diabetes mellitus without complications; Z79.4 Long term (current) use of insulin
CPT/HCPCS: 99213; G0463

== ENCOUNTER 2023-12-06 11:30 | Outpatient (RCR) | payer OTHER, SELFPAY ==
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
--- NOTE | 2024-03-28 11:13 | HP.OT.NRP ---
Patient Information Patient Information: VIRI COURTNEY was seen in my office for initial evaluation on 10/05/23. The following Plan of Care was established for this patient: POC Established Initial Frequency: 1-2x /Week Initial Duration: 2-4 Weeks Plan: cont for 1x week for 4 weeks Anticipated Interventions Anticipated Interventions: A/AAROM/PROM, Strengthening, Edema Control, Triggerpoint Release, Modalities, Joint Protection/Energy Conservation, Ergonomic Education, Education re Diagnosis and Home Program Last Seen Last Seen: This patient was last seen in our office 12/06/23. Pertinent comments regarding their Occupational therapy will appear below: pt was seen for 11 OT sessions - Due to time lapse in services pt is d/c at this time. At this point I will be discontinuing this patient from occupational therapy. I would be happy to see this patient again in the future if found appropriate by the physician. Thank you! Vee Motnemayor, OTR/L, CHT
== END 2023-12-06 19:00 | disposition home or self-care (01) ==
LOC: OT 11:30
PROVIDERS: PCP Family Medicine; Visit Provider Orthopaedic Surgery Sports Medicine
DX: S52.021D Displaced fracture of olecranon process without intraarticular extension of right ulna, subsequent encounter for closed fracture with routine healing (principal)
CPT/HCPCS: 97110; 97140; 97166; 97530

== ENCOUNTER → 2024-06-20 | Outpatient (CLI) | payer OTHER, SELFPAY ==
[2024-06-20 12:34] LABS: Absolute Lymphocyte Count 1.47 X10^3/uL (0.83-4.51); Absolute Neutrophil Count 2.8 X10^3/uL (2.0-7.7); Basophil# 0.04 X10^3/uL; Basophil% 0.8 % (0-1); Eosinophil# 0.34 X10^3/uL; Eosinophils% 6.9 % (0-5); Hemoglobin 13.7 g/dL (13.0-16.5); Lymphocyte # 1.47 X10^3/ul (0.83-4.51); Lymphocyte % 29.9 % (19-41); Mean Corp Hgb Conc 32.6 g/dL (32-36); Mean Corpuscular Hgb 27.6 pg (27.0-32.0); Mean Corpuscular Volume 84.5 fL (80-94); Mean Platelet Vol. 10.8 fl (6.2-12.0); Monocyte# 0.31 X10^3/uL; Monocyte% 6.3 % (0-10); NRBC Flagged by Analyzer 0 % (0-5); Neutrophil # 2.75 X10^3/uL (2.7-7.7); Neutrophil % 55.9 % (47-70); POSITIVE MORPHOLOGY YES; Platelet Count 232 K/mm3 (150-450); RBC Distribution Width CV 12.6 % (11.6-14.6); RBC Distribution Width SD 38.5 fl (35.1-43.9); Red Blood Count 4.97 M/mm3 (4.6-6.2); White Blood Count 4.9 K/mm3 (4.4-11.0)
[2024-06-20 12:38] LABS: Differential Indicated SCAN CRITERIA MET
[2024-06-20 13:02] LABS: ALB/GLOB Ratio 0.8 RATIO (0.9-2.4); AST(SGOT) 42 U/L (15-37); Alanine Aminotransfer ALT/SGPT 72 U/L (16-61); Albumin, Serum 3.4 g/dL (3.2-5.0); Alkaline Phosphatase 60 U/L (45-117); Anion Gap 9 (5-15); BUN 18 mg/dL (7-18); BUN/Creat Ratio 26.3 RATIO (10-20); Calcium,Total 9.2 mg/dL (8.5-10.1); Chloride 102 mmol/L (98-107); Cholesterol 121 mg/dL (200); Creatinine, Serum 0.68 mg/dL (0.70-1.30); EST Glomerular Filtration Rate 121 mL/min (>60); Est Glom Filt Rate - Afr Amer 146 mL/min (>60); Globulin 4.1 g/dL (2.2-4.2); Glucose 224 mg/dL (74-106); High Density Lipoprotein 35 mg/dL; Potassium 4.2 mmol/L (3.5-5.1); Protein, Total 7.5 g/dL (6.4-8.2); Sodium Level 137 mmol/L (136-145); Triglycerides 230 mg/dL; Very Low Density Lipoprotein 46 mg/dL (5-40)
[2024-06-20 13:19] LABS: Atypical Lymphocyte 1+ %
== END | disposition home or self-care (01) ==
LOC: BIMLAB 09:17
PROVIDERS: PCP Family Medicine; Referring Provider Family Medicine; Visit Provider Family Medicine
DX: E11.9 Type 2 diabetes mellitus without complications (principal); Z79.4 Long term (current) use of insulin; D50.9 Iron deficiency anemia, unspecified
CPT/HCPCS: 36415; 80053; 80061; 85025

== ENCOUNTER → 2025-03-12 | Outpatient (CLI) | payer OTHER, SELFPAY ==
[2025-03-12 12:55] LABS: ALB/GLOB Ratio 1.3 RATIO (0.9-2.4); AST(SGOT) 48 U/L (<=37); Alanine Aminotransfer ALT/SGPT 57 U/L (<=46); Alkaline Phosphatase 62 U/L (40-129); Anion Gap 12 (5-15); BUN 18 mg/dL (4-19); BUN/Creat Ratio 26.8 RATIO (10-20); Calcium,Total 9.4 mg/dL (7.6-11.0); Carbon Dioxide 24.3 mmol/L (21.0-32.0); Chloride 100 mmol/L (98-108); Cholesterol 131 mg/dL (<=200); Creatinine, Serum 0.69 mg/dL (0.70-1.20); EST Glomerular Filtration Rate 98 (>60); Globulin 3.1 g/dL (2.2-4.2); Glucose 370 mg/dL (70-99); High Density Lipoprotein 37 mg/dL; Low Density Lipoprotein Calc. 45 mg/dL; Potassium 4.6 mmol/L (3.3-5.1); Protein, Total 7.1 g/dL (5.9-8.4); Sodium Level 136 mmol/L (133-145); Total Bilirubin 0.34 mg/dL (0.00-1.30); Triglycerides 250 mg/dL; Very Low Density Lipoprotein 50 mg/dL (5-40); cholesterol:hdl ratio screen 3.59
== END | disposition home or self-care (01) ==
LOC: BIMLAB 09:33
PROVIDERS: PCP Family Medicine; Referring Provider Family Medicine; Visit Provider Family Medicine
DX: I10 Essential (primary) hypertension (principal); E78.2 Mixed hyperlipidemia
CPT/HCPCS: 36415; 80053; 80061